=== PATIENT | female | born 1985 | race Hispanic/Latino ===

== ENCOUNTER 2017-10-13 22:42 | Inpatient (IN) | payer MEDICARE, MEDICAID ==
[~2017-10-13] VITALS: Ht 160 cm; Wt 56.7 kg
[2017-10-13] MEDS ORDERED: DEPAKOTE125 MG PO (22:58)
[2017-10-13] MEDS ORDERED: FIORICET1 EA ORAL (22:58)
--- NOTE | 2017-10-13 23:18 | Emergency Room Report ---
History of Present Illness General Chief Complaint: Dizziness Source: Patient Present Illness HPI Is a 32-year-old female with a history migraine and seizure. She presents with chief complaint of dizziness, slurred speech, numbness to her lower extremity. His been ongoing for couple weeks now. Denies any fever chills denies any nausea vomiting. Has headache. She said that she felt like her face is swollen and she can call for a while. She said that she has to text everything. Worse with exertion. She claimed that she had blood work done and it showed as she is very anemic. She dropped from hemoglobin 12.7 to 8.2. This is in the last 2 months. Allergies: Coded Allergies: No Known Allergies (Unverified , 10/13/17) Patient History Past Medical History: see triage record, seizures, migraines Past Surgical History: none Pertinent Family History: none Social History: Denies: smoking Last Menstrual Period: 2 WEEKS AGO Now: No Immunizations: other Reviewed Nursing Documentation: PMH: Agreed, PSxH: Agreed Nursing Documentation-PMH Hx Seizures: Yes Review of Systems Constitutional: Reports: weakness Eye: Denies: eye pain, blurred vision ENT: Denies: ear pain, nose congestion, throat swelling Respiratory: Denies: cough, shortness of breath Cardiovascular: Denies: chest pain, palpitations Gastrointestinal: Denies: abdominal pain, diarrhea, nausea, vomiting Musculoskeletal: Denies: back pain, joint pain Skin: Denies: rash Neurological: Reports: headache, numbness Endocrine: Denies: increased thirst, increased urine Hematologic/Lymphatic: Denies: easy bruising All Other Systems: negative except mentioned in HPI Physical Exam Vital Signs Date Time Temp Pulse Resp B/P (MAP) Pulse Ox O2 Delivery O2 Flow Rate FiO2 10/13/17 22:47 99.3 98 16 125/83 100 Room Air vitals normal Sp02 EP Interpretation: reviewed, normal General Appearance: well appearing, no apparent distress, alert Head: normocephalic, atraumatic Eyes: bilateral eye PERRL, bilateral eye EOMI ENT: hearing grossly normal, normal pharynx Neck: full range of motion, supple, no meningismus Respiratory: chest non-tender, lungs clear, normal breath sounds Cardiovascular #1: regular rate, rhythm, no murmur Gastrointestinal: normal bowel sounds, non tender, no mass, no organomegaly, no bruit, non-distended Musculoskeletal: back normal, normal range of motion Neurologic: alert, oriented x3 Psychiatric: depressed affect Skin: warm/dry Medical Decision Making Diagnostic Impression: Primary Impression: Paresthesia Additional Impressions: Weakness of right hand Frequent falls Anemia Qualified Codes: D64.9 - Anemia, unspecified UTI (urinary tract infection) Qualified Codes: N30.00 - Acute cystitis without hematuria ER Course Patient presents with dizziness, blurred vision, paresthesias a neuropathy in her left lower extremity and weakness in the right upper extremity. She been diagnosed with TIA in the past. This does not appear to be in TIA/CVA symptoms. Ongoing for 2 weeks and getting worse. She has frequent falls. Her neurologist Dr. Augustine Krueger, ([phone]) said that she may have early MS. I gave her a dose of steroids here. She said she been on steroids in the past and it caused severe headache pain joint pain after a month. She also says she been on multiple different kind of medication. Because of her frequent falls will admit for further workup and neurology consult. Lab Results Impression labs with anemia Rhythm Strip Diag. Results Rhythm Strip Time: 03:20 EP Interpretation: yes Rate: 70 Rhythm: NSR, no PVC's, no ectopy CT/MRI/US Diagnostic Results CT/MRI/US Diagnostic Results : Imaging Test Ordered: CT head Impression negative per radiologist Last Vital Signs Date Time Temp Pulse Resp B/P (MAP) Pulse Ox O2 Delivery O2 Flow Rate FiO2 10/13/17 22:47 99.3 98 16 125/83 100 Room Air Status: improved Disposition: ADMITTED INPATIENT Condition: Serious ELEANOR SAUER M.D. Oct 13, 2017 23:18
[2017-10-13 23:34] LABS: APPEARANCE,URINE SLIGHTLY CLOUDY; KETONES,URINE NEGATIVE (NEGATIVE); LEUKOCYTE ESTERASE ,URINE NEGATIVE (NEGATIVE); NITRITE,URINE POSITIVE (NEGATIVE); PH,URINE 7 (4.5-8.0); PROTEIN,URINE NEGATIVE (NEGATIVE); UROBILINOGEN,URINE NORMAL MG/DL (0.0-1.0)
[2017-10-13 23:47] LABS: BASOPHILS % (AUTO) 2.2 % (0.0-2.0); EOSINOPHILS % (AUTO) 0.6 % (0.0-3.0); MEAN CORPUSCULAR HEMOGLOBIN 19.8 PG (27.0-31.0); MEAN CORPUSCULAR HGB CONC 29.7 G/DL (32.0-36.0); MEAN CORPUSCULAR VOLUME 67 FL (80-99); MEAN PLATELET VOLUME 6.2 FL (6.5-10.1); MONOCYTES % (AUTO) 10.2 % (1.0-10.0); NEUTROPHILS % (AUTO) 52.1 % (45.0-75.0); PLATELET COUNT 265 K/UL (150-450); RED BLOOD COUNT 4.39 M/UL (4.20-5.40); RED CELL DISTRIBUTION WIDTH 13.8 % (11.6-14.8); WHITE BLOOD COUNT 4.1 K/UL (4.8-10.8)
[2017-10-13 23:49] LABS: BACTERIA,URINE MANY /HPF; RBC,URINE 0-2 /HPF (0 - 2); SQUAMOUS EPITHELIAL CELL,UR OCCASIONAL /LPF (NONE/OCC); WBC,URINE 0-2 /HPF (0 - 2)
[2017-10-13 23:59] LABS: ANION GAP 10 mmol/L (5-15); CALCIUM 8.6 MG/DL (8.5-10.1); CARBON DIOXIDE 23 MMOL/L (21-32); CHLORIDE 106 MMOL/L (98-107); CREATININE 0.8 MG/DL (0.55-1.30); GLOMERULAR FILTRATION RATE > 60 mL/min (>60); POTASSIUM 3.5 MMOL/L (3.5-5.1); SODIUM 139 MMOL/L (136-145)
[2017-10-14] VITALS (8 sets, daily range): BP systolic 105–134; BP diastolic 57–80
[2017-10-14 00:04] LABS: VALPROIC ACID < 3 MCG/ML (50-100)
[2017-10-14] MEDS ORDERED: HYDROmorphone 1mg/ml Carpuject IVP ONE ×2 (00:15→01:45)
[2017-10-14] MEDS ORDERED: cefTRIAXone 1 GM in NS 55 ML IVPB ONE (00:15)
[2017-10-14] MEDS ORDERED: Solu-MEDROL 125mg Inj IVP ONE (00:15)
[2017-10-14] MEDS ORDERED: Depakote 500mg tab ORAL ONE (00:45)
[2017-10-14] MEDS: Ketorolac 30mg Inj IV ONE ×2 (01:00→01:28)
[2017-10-14] MEDS ORDERED: WELLBUTRIN XL150 MG ORAL (03:24)
[2017-10-14] MEDS ORDERED: AMBIEN10 MG ORAL (03:24)
[2017-10-14] MEDS ORDERED: ATIVAN1 MG ORAL (03:24)
[2017-10-14] MEDS ORDERED: LORazepam 1mg tab ORAL PRN (05:45)
[2017-10-14] MEDS: HYDROmorphone 1mg/ml Carpuject IVP PRN ×2 (06:35→10:37)
[2017-10-14] MEDS: BuPROPion XL 150mg tab ORAL SCH (08:29)
[2017-10-14] MEDS: Heparin 5000 units/ml inj SUBQ SCH ×2 (08:31→21:06)
[2017-10-14 10:20] LABS: IRON 19 ug/dL (50-175); TOTAL IRON BINDING CAPACITY 425 ug/dL (250-450)
--- NOTE | 2017-10-14 10:20 | Diagnostic Imaging Report ---
Indication: Altered mental status Technique: Continuous helical CT scanning of the head was performed utilizing automated exposure control without intravenous contrast material. Axial and coronal reconstructions were obtained. Comparison: None CT dose: Total DLP 1397 mGycm; CTDI vol 70.4 mGy Findings: There is no acute intracranial hemorrhage, mass effect or cortical edema. The ventricles, cisterns and sulci are within normal limits. The posterior fossa and fourth ventricle are unremarkable. Sellar and suprasellar regions are grossly unremarkable. Visualized mastoid air cells and paranasal sinuses are unremarkable. No focal lesions of the bony calvarium or soft tissues of the scalp are seen. Impression: No evidence of acute intracranial hemorrhage, mass effect or cortical edema. MRI may be obtained for more sensitive evaluation as clinically indicated. The CT scanner at [facility] is accredited by the [employer] and the scans are performed using protocols designed to limit radiation exposure to as low as reasonably achievable to attain images of sufficient resolution adequate for diagnostic evaluation.
[2017-10-14] MEDS: DiphenhydrAMINE 50mg/ml Inj IVP PRN ×3 (12:03→21:48)
[2017-10-14] MEDS ORDERED: Hydromorphone 0.5mg/0.5ml inj IVP PRN (13:00)
--- NOTE | 2017-10-14 14:22 | Consultation ---
Consult Note Consult Note [facility] NEUROLOGY CONSULTATION 10/14/2017 DIP LUBE OPERATOR: Ivory Paz M.D. REFERRING PHYSICIAN: Reid St M.D. HISTORY: Ms. Alissa Love is a 32-year-old, right-handed, lady who has a history of migraine headaches and seizures since she was age 14. Her migraine headaches at first were quite infrequent, but over the last 7-8 years, she has been having them almost every day. She takes Fioricet for these headaches and sometimes has to take multiple Fioricets every day. By history, her seizures consist of generalized abnormal body jerking associated with loss of consciousness. The frequency of these seizures has varied over the years, but now she has them approximately twice a month. She is unable to tell me what medicine she takes for her seizures. In 2012, she was diagnosed with an aneurysm, most probably somewhere in the posterior circulation from what she tells me. She was evaluated for that at [facility] and a coil was placed in the aneurysm. Since November of 2014. She has been quite ill. She has had multiple episodes where she has problems talking. She has slurring of speech, problems expressing herself, significant confusion and disorientation, slowing of her thoughts, and inability to walk because of generalized weakness. These episodes can last for 5 to 6 hours and at times an entire day. For the last week she has noticed that her entire left leg below the knee is numb. In addition the right upper extremity feels weak. She was told her neurologist that she could have MS. PAST MEDICAL HISTORY: Migraines since age 14. Seizure disorder since age 14. 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 Since November of 2014, multiple episodes of slurring of speech, cognitive dysfunction, and generalized weakness related to prescription drug intoxication. FAMILY HISTORY: Nothing significant. PERSONAL HISTORY: Home: She lives with her and 2 children. 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 Habits: She used to smoke electronic cigarettes but has stopped doing that for quite some time now. She used to have a rare alcoholic drink but is not drinking right now. There is no history of any illicit drug use. MEDICATIONS: Unknown. PHYSICAL EXAMINATION: GENERAL EXAMINATION: She is a well-developed, relatively well-nourished lady lying in bed in no acute distress. VITAL SIGNS: BP 112/73 Pulse 67 Temp 98.2 F Resp 18 HEAD: Normocephalic and atraumatic. NECK: No neck rigidity was observed. EENT: Examination benign. NEUROLOGICAL EXAMINATION: MENTAL STATUS EXAMINATION: She was alert and awake. She was oriented to [facility], [facility], and September 2017. She did not know the exact date. She was able to recall 3/3 words immediately after 1 minute and after 3 minutes on the second trial. She was able to remember Presidents Trump and Obama only. Her mathematical skills were impaired. Her visuospatial function was also impaired. SPEECH: She had mild but unusual dysarthria. LANGUAGE: She was able to comprehend, repeat and express herself relatively well, but hesitated when she spoke. CRANIAL NERVE EXAMINATION: II: The visual albrecht were intact on confrontation testing. III, IV, and : External ocular movements were full and the pupils 3 mm in diameter, equal, round,regular, and reactive to light. V: She had normal facial sensations, and the temporales, masseters, and pterygoids functioned normally. VII: She had normal facial expressions and no facial asymmetry. VIII: She was able to hear well bilaterally and had no nystagmus. IX: The palate moved symmetrically on phonation. X: She had no hoarseness of voice. XI: The sternocleidomastoids and trapezii functioned normally. XII: The tongue was in the midline without any fasciculations or atrophy. MOTOR SYSTEM: The tone was normal in all 4 extremities. Examination of muscle mass revealed no focal wasting. Examination of power revealed G 5/5 power in all muscle groups but she exhibited give way weakness in the right upper and left lower extremities. SENSORY EXAMINATION: She had intact sensations to pinprick, light touch, and graphesthesia. COORDINATION: She performed relatively well on [id number]-vd-[id number] testing, however the movements were significantly slowed. Niyf-bz-qyvm testing could not be performed. REFLEXES: 1+ and bilaterally symmetrical at the biceps, triceps, brachioradialis , and knees. Trace+ at both ankles. The plantar responses were flexor bilaterally. STANCE: She refused to try. GAIT: She refused to try. DIAGNOSTIC IMPRESSION: 1. Ms. Alissa Love is a 32-year-old, right-handed, lady who does have a past history of seizures and migraines since age 14, who also had an aneurysm that had to be coiled in 2012. The exact location of this aneurysm is unknown to her. She since November 2014 has had a progressive decline in cognitive and motor function with multiple episodes of slurring of speech, generalized weakness with inability to walk, and slowing of her thought processes associated with speech and language problems. It was felt that this problem was due to drug intoxication and improved when all mind altering drugs were stopped. 2. These problems have returned and in addition for the last week she has noticed that her entire left leg below the knee is numb. In addition the right upper extremity feels weak. She was told her neurologist that she could have MS. 3. On neurological examination, at this time, she does demonstrate a significant dysarthria, generalized cognitive dysfunction, give way weakness in the right upper and left lower extremities, but no definite focal or lateralizing findings on her neurological examination. 4. Her episodes of slurring of speech, problems expressing herself, slowing of her thought processes and generalized weakness are most probably due to barbiturate intoxication as confirmed on her urine toxicology screen. 5. It is unclear as to why her entire left leg below the knee is numb, and the right upper extremity weak. RECOMMENDATIONS: 1. Agree with management thus far. 2. Try to find out what medicines she was taking at home. 3. Will review MRI of brain when done. 4. EEG to evaluate degree and type of encephalopathy. 5. Observe closely. Thank you for entrusting me with the care of Ms. Love. I shall follow her with you. Ivory Paz M.D., M.S.P.H. Neurologist & Clinical Neurophysiologist IVORY PAZ Oct 14, 2017 14:22
[2017-10-14] MEDS: Hydromorphone 0.5mg/0.5ml inj IVP PRN ×2 (16:05→21:14)
[2017-10-14] MEDS: LORazepam 1mg tab ORAL PRN (17:29)
--- NOTE | 2017-10-14 20:30 | History and Physical Report ---
DATE OF ADMISSION: 10/14/2017 CHIEF COMPLAINT: Possible MS exacerbation. HISTORY OF PRESENT ILLNESS: The patient is a 32-year-old female. She has a history of MS for the last year, migraine headaches, and seizure disorder. She presented with complaints of generalized weakness. According to the patient, she was well until several days prior to admission when she developed worsening weakness in the left lower extremity and right upper extremity. She has been unable to use the right hand. She has been unable to pickle pumper a cup or eat. She has had unsteadiness and gait instability and some falls. She has also had worsening burning pain in the arms and legs. She presented to the emergency room where initial laboratories and vital signs were unremarkable. She was noted to be anemic with a hemoglobin of 8.7. She does state that she has had some blood in her stool. She denies any abdominal pain. No nausea. No vomiting. PAST MEDICAL HISTORY: As above. PAST SURGICAL HISTORY: Includes an appendectomy and a tubal ligation. CURRENT MEDICATIONS: Reconciled and reviewed. ALLERGIES: None. SOCIAL HISTORY: Negative for tobacco, ethanol. The patient did try marijuana few days ago to see if that would help with her weakness but according to the patient it only made her sicker. FAMILY HISTORY: None. REVIEW OF SYSTEMS: GENERAL: No fever or chills. HEENT: No headaches or visual changes. CARDIOPULMONARY: No chest pain or shortness of breath. GASTROINTESTINAL: No nausea or vomiting. GENITOURINARY: No urgency or frequency. MUSCULOSKELETAL: No joint pain or swelling. NEUROLOGIC: Positive history of seizures. PHYSICAL EXAMINATION: VITAL SIGNS: Temperature 98.3, pulse 68, respirations 18, and blood pressure 113/69. GENERAL: The patient is a well-developed female, in no apparent distress. She is awake, alert, but seems somewhat somnolent, but is able answer to questions. Pupils are equal, round, and light. There is a questionable left-sided facial droop. NECK: Supple. There is no lymphadenopathy. HEART: Regular rate and rhythm. LUNGS: Lungs are clear. ABDOMEN: Soft, nontender, and nondistended. EXTREMITIES: Without clubbing, cyanosis, or edema. The patient has generalized weakness in the left upper extremity and right lower extremity. She is numb in the the hands and the feet. LABORATORY DATA: White count was 4, hemoglobin 8.7, hematocrit 29, and platelets of 265. Sodium 139, potassium 3.5, chloride 106, bicarb 23, BUN 9, and creatinine is 0.8. UA was clear. ASSESSMENT: This is an unfortunate female admitted with complaints of generalized weakness, suspect secondary to multiple sclerosis exacerbation. 1. Possible multiple sclerosis exacerbation 2. Anemia. 3. History of migraines. 4. Chronic pain. PLAN: 1. MRI of the brain with contrast. 2. Neurology consultation. 3. Anemia workup. 4. IV pain medications and IV hydration will also be ordered. 5. PT/OT evaluation will also be obtained. Reid St M.D. DR: Rao JOB#: [id number] CC:
[2017-10-14] MEDS: Iron Sucrose 100 MG in NS 55 ML IVPB SCH (20:58)
[2017-10-14] MEDS: Zolpidem 5mg tab ORAL PRN (22:58)
[2017-10-15] VITALS: BP 102/65
[2017-10-15] MEDS: Hydromorphone 0.5mg/0.5ml inj IVP PRN ×6 (01:37→22:52)
[2017-10-15 04:00] VITALS: BP 100/63
--- NOTE | 2017-10-15 07:13 | General Progress Note ---
Assessment/Plan Problem List: (1) Seizure ICD Codes: R56.9 - Unspecified convulsions SNOMED: 08739938 (2) Multiple sclerosis ICD Codes: G35 - Multiple sclerosis SNOMED: 46459202 (3) Dizziness ICD Codes: R42 - Dizziness and giddiness SNOMED: 875895471, 899843690 (4) Weak ICD Codes: R53.1 - Weakness SNOMED: 01867773 (5) Weakness of right hand ICD Codes: R29.898 - Other symptoms and signs involving the musculoskeletal system SNOMED: 708358583 (6) Frequent falls ICD Codes: R29.6 - Repeated falls SNOMED: 813041482 (7) Paresthesia ICD Codes: R20.2 - Paresthesia of skin SNOMED: 17183639 Status: stable, progressing Assessment/Plan cont current rx ivf pain rx eeg await mri pt/ot Subjective ROS Limited/Unobtainable: No Constitutional: Reports: malaise, weakness HEENT: Reports: no symptoms Cardiovascular: Reports: no symptoms Respiratory: Reports: no symptoms Gastrointestinal/Abdominal: Reports: no symptoms Genitourinary: Reports: no symptoms Neurologic/Psychiatric: Reports: pre-existing deficit Endocrine: Reports: no symptoms Hematologic/Lymphatic: Reports: no symptoms Allergies: Coded Allergies: No Known Allergies (Unverified , 10/13/17) All Systems: reviewed and negative except above Subjective no new complaints. pain controlled. no fever or chills. no headaches. neuro appreciated. Objective Last 24 Hour Vital Signs Date Time Temp Pulse Resp B/P (MAP) Pulse Ox O2 Delivery O2 Flow Rate FiO2 10/15/17 04:00 98.7 18 100/63 99 Room Air 10/15/17 00:00 99.2 77 20 102/65 100 Room Air 10/14/17 20:00 99.6 67 20 107/68 100 Room Air 10/14/17 15:53 98.2 10/14/17 15:41 98.2 77 20 105/57 100 Room Air 10/14/17 12:00 97.8 69 18 134/79 99 Room Air 10/14/17 10:03 97.8 10/14/17 08:00 98.2 67 18 112/73 99 Room Air Laboratory Tests 10/14/17 09:44: Iron Level 19L, Total Iron Binding Capacity 425, Percent Iron Saturation 4L, Unsaturated Iron Binding 406H 10/15/17 04:30: Thyroid Stimulating Hormone (TSH) [Pending] Height (Feet): 5 Height (Inches): 3.00 Weight (Pounds): 125 General Appearance: WD/WN, alert Neck: supple Cardiovascular: normal peripheral pulses, normal rate, regular rhythm Respiratory/Chest: chest wall non-tender, lungs clear, normal breath sounds Abdomen: normal bowel sounds, non tender, soft, no organomegaly Edema: no edema noted Arm (L), no edema noted Arm (R), no edema noted Leg (L), no edema noted Leg (R), no edema noted Pedal (L), no edema noted Pedal (R), no edema noted Generalized Neurologic: motor weakness, sensory deficit TOMY RODAS Oct 15, 2017 07:13
[2017-10-15 08:00] VITALS: BP 100/61
[2017-10-15] MEDS: BuPROPion XL 150mg tab ORAL SCH (08:07)
[2017-10-15] MEDS: Heparin 5000 units/ml inj SUBQ SCH ×2 (08:11→21:48)
[2017-10-15] MEDS: DiphenhydrAMINE 50mg/ml Inj IVP PRN ×4 (09:56→22:51)
--- NOTE | 2017-10-15 12:48 | Neurology Progress Note ---
Interim History Interim History Interim History Ms. Love feels a little better today. She feels a little stronger. The headache is better. She denies any new neurologic symptoms. She continues to seem to be intoxicated. Review of Systems Neuro Review of Systems Benign. Objective Physical Exam Last Vital Signs Date Time Temp Pulse Resp B/P (MAP) Pulse Ox O2 Delivery O2 Flow Rate FiO2 10/15/17 10:27 98.7 10/15/17 08:00 98 Room Air 10/15/17 08:00 68 18 100/61 Laboratory Tests Test 10/15/17 04:30 Thyroid Stimulating Hormone (TSH) 1.390 uiU/mL (0.358-3.740) Neurologic Exam Objective PHYSICAL EXAMINATION: GENERAL EXAMINATION: She is a well-developed, relatively well-nourished lady lying in bed in no acute distress. HEAD: Normocephalic and atraumatic. NECK: No neck rigidity was observed. EENT: Examination benign. NEUROLOGICAL EXAMINATION: MENTAL STATUS EXAMINATION: She was alert and awake. She was oriented to [facility], [facility], and September 2017. She did not know the exact date. She was able to recall 3/3 words immediately after 1 minute and after 3 minutes on the second trial. She was able to remember Presidents Trump and Obama only. Her mathematical skills were impaired. Her visuospatial function was also impaired. SPEECH: She had mild but unusual dysarthria. LANGUAGE: She was able to comprehend, repeat and express herself relatively well , but hesitated when she spoke. CRANIAL NERVE EXAMINATION: II: The visual albrecht were intact on confrontation testing. III, IV, and : External ocular movements were full and the pupils 3 mm in diameter, equal, round,regular, and reactive to light. V: She had normal facial sensations, and the temporales, masseters, and pterygoids functioned normally. VII: She had normal facial expressions and no facial asymmetry. VIII: She was able to hear well bilaterally and had no nystagmus. IX: The palate moved symmetrically on phonation. X: She had no hoarseness of voice. XI: The sternocleidomastoids and trapezii functioned normally. XII: The tongue was in the midline without any fasciculations or atrophy. MOTOR SYSTEM: The tone was normal in all 4 extremities. Examination of muscle mass revealed no focal wasting. Examination of power revealed G 5/5 power in all muscle groups but she exhibited less give way weakness in the right upper and left lower extremities. SENSORY EXAMINATION: She had intact sensations to pinprick, light touch, and graphesthesia. COORDINATION: She performed relatively well on gotban-rw-zzbz and vhic-ug-zhlg testing. REFLEXES: 1+ and bilaterally symmetrical at the biceps, triceps, brachioradialis , and knees. Trace+ at both ankles. The plantar responses were flexor bilaterally. STANCE: She stood up with contact guard. GAIT: She walked well with contact guard with an awkward gait. Impression/Recommendations Diagnostic Impression 1. Ms. Alissa Love is a 32-year-old, right-handed, lady who does have a past history of seizures and migraines since age 14, who also had an aneurysm that had to be coiled in 2012. The exact location of this aneurysm is unknown to her. She since November 2014 has had a progressive decline in cognitive and motor function with multiple episodes of slurring of speech, generalized weakness with inability to walk, and slowing of her thought processes associated with speech and language problems. It was felt that this problem was due to drug intoxication and improved when all mind altering drugs were stopped. 2. These problems have returned and in addition for the last week she has noticed that her entire left leg below the knee is numb. In addition the right upper extremity feels weak. She was told her neurologist that she could have MS. 3. She feels better today but is still not back to her normal self. 4. On neurological examination, at this time, she does demonstrate a significant dysarthria, generalized cognitive dysfunction, give way weakness in the right upper and left lower extremities, but no definite focal or lateralizing findings on her neurological examination. 5. Her episodes of slurring of speech, problems expressing herself, slowing of her thought processes and generalized weakness are most probably due to barbiturate intoxication as confirmed on her urine toxicology screen. 6. It is unclear as to why her entire left leg below the knee is numb, and the right upper extremity weak. Recommendations 1. Continue present management. 2. Will review MRI of brain when done. 3. Await EEG to evaluate degree and type of encephalopathy. 4. Try to keep off all mind-altering drugs. 5. Observe closely. Nain Almanza M.D., M.S.P.H. Neurologist & Clinical Neurophysiologist NAIN ALMANZA Oct 15, 2017 12:48
[2017-10-15] MEDS ORDERED: Tubing IV Secondary IV ONE (14:51)
[2017-10-15] MEDS ORDERED: NS 500ML ONE (14:51)
[2017-10-15 16:00] VITALS: BP 93/59
--- NOTE | 2017-10-15 16:33 | Diagnostic Imaging Report ---
Indication: Migraines, left leg and right arm weakness Technique: sagittal T1 fast spin echo, axial T1 and axial and sagittal T2 FLAIR PROPELLER, axial T2 FS PROPELLER, T2* GRE, axial diffusion weighted images, post contrast axial and coronal T1 FLAIR PROPELLER images. ADC and exponential ADC maps generated Comparison: Brain CT 10/13/2017 Findings: . No abnormal areas of restricted diffusion to suggest acute infarction. No acute hemorrhage or edema. No mass effect nor midline shift. No abnormal contrast enhancement. Normal size ventricles and extra axial CSF spaces. Visualized orbits and sinuses are unremarkable. The vascular flow voids are preserved. There is incidental finding of a patent cavum septum pellucidum. No abnormal white matter changes are evident. Unusual band of signal is seen in the inferior optic globes bilaterally, suspect artifactual Impression: Negative. No evidence of acute intracranial hemorrhage, edema, mass effect, or infarct.
[2017-10-15 17:34] VITALS: BP 95/62
[2017-10-15 20:00] VITALS: BP 94/58
[2017-10-15] MEDS: Iron Sucrose 100 MG in NS 55 ML IVPB SCH (21:43)
[2017-10-15] MEDS: Zolpidem 5mg tab ORAL PRN (23:56)
[2017-10-16] VITALS: BP 88/60
[2017-10-16 03:47] VITALS: BP 81/43
[2017-10-16 04:09] VITALS: BP 92/61
[2017-10-16 05:20] VITALS: BP 99/70
[2017-10-16] MEDS: Hydromorphone 0.5mg/0.5ml inj IVP PRN ×2 (05:26→09:35)
[2017-10-16] MEDS: DiphenhydrAMINE 50mg/ml Inj IVP PRN ×2 (05:26→10:22)
[2017-10-16 08:00] VITALS: BP 99/52
[2017-10-16] MEDS: BuPROPion XL 150mg tab ORAL SCH (08:33)
[2017-10-16] MEDS: Heparin 5000 units/ml inj SUBQ SCH (08:38)
[2017-10-16 12:00] VITALS: BP 104/64
[2017-10-16] MEDS: LORazepam 1mg tab ORAL PRN (12:43)
[2017-10-16] MEDS ORDERED: NS 500ML ONE (12:59)
--- NOTE | 2017-10-16 17:15 | Discharge Summary ---
DATE OF ADMISSION: 10/14/2017 DATE OF DISCHARGE: 10/16/2017 ADMISSION DIAGNOSES: 1. Multiple sclerosis exacerbation. 2. Intractable pain. 3. History of seizure disorder. DISCHARGE DIAGNOSES: 1. Multiple sclerosis exacerbation. 2. Intractable pain. 3. History of seizure disorder. HOSPITAL COURSE: The patient is a pleasant female, who presented with complaints of multiple neurologic complaints including weakness and numbness. She gave a history of a diagnosis of MS. She was admitted. Neuro consultation was obtained. She required IV pain medication for pain control. She had a MRI with contrast that showed no evidence of any MS. She was seen by Neurology, who felt most of her pain was related to severe migraine. The patient on discharge was pain free and her weakness has improved. She will be discharged with home health or outpatient physical therapy. She has been instructed to follow up with her PMD. DISCHARGE MEDICATIONS: Please see discharge medication list for discharge medications. DIET: Regular diet. ACTIVITIES: Ad-evelyn. Reid St M.D. DR: ANDREA JOB#: [id number] CC:
--- NOTE | 2017-10-25 16:15 | Electroencephalogram ---
DATE OF PROCEDURE: 10/15/2017 EEG REPORT REQUESTING PHYSICIAN: Reid St M.D. HISTORY: This EEG was performed on a 32-year-old lady with a history of multiple medical problems, who was hospitalized for an altered mental state, increasing slurring of speech, cognitive dysfunction and questionable seizures. The purpose of this EEG was to evaluate the patient for the degree and type of cerebral dysfunction and to exclude ongoing interictal or ictal phenomena. TECHNICAL NOTE: This EEG was performed on a [employer] acquisition unit with electrodes placed on the scalp according to the International 10-20 system. Ftdaz-pu-dhkda and wzpos-na-npi montages were used. The EEG was technically satisfactory and was performed in the awake and drowsy states. OBSERVATIONS: In the best awake state, the background activity consisted of 8-9 Hz alpha activity with intermixed theta frequencies. Drowsiness was characterized by slowing of the background in the 4-5 Hz theta range. No focal abnormalities or epileptiform discharges were seen. IMPRESSION: This is an abnormal electroencephalogram characterized by an unusually large amount of intermixed theta activity seen during the reportedly awake state. COMMENT: This study is consistent with an encephalopathy of a mild degree. Please note that no interictal discharges were seen on this EEG. Nain Almanza M.D., M.S.P.H. DR: MYRNA JOB#: [id number] MTDChristina
== END 2017-10-16 13:00 | disposition home health service (06) | DRG 60 ==
LOC: EMR 23:30 → EDBEDREQ 10-14 01:28 → MERGE 10-14 01:35 → 4E 10-14 01:35 → EDBEDREQ 10-14 02:15 → 4E 10-14 20:16
DX: G35 Multiple sclerosis (principal); D64.9 Anemia, unspecified; G89.29 Other chronic pain; R29.6 Repeated falls; R20.2 Paresthesia of skin; G40.909 Epilepsy, unspecified, not intractable, without status epilepticus; I72.9 Aneurysm of unspecified site; Z98.51 Tubal ligation status; Z86.73 Personal history of transient ischemic attack (TIA), and cerebral infarction without residual deficits
CPT/HCPCS: 36415; 70450; 70553; 80048; 80164; 80307; 81003; 81025; 83540; 83550; 84443; 85025; 87086; 87181; 95819; 99285; A9585; J2405

== ENCOUNTER 2018-06-11 17:05 | Emergency (ER) | payer MEDICARE, MEDICAID ==
[~2018-06-11] VITALS: Ht 160 cm; Wt 53.1 kg
[~2018-06-11 17:05] MED LIST: AMBIEN10 MG ORAL; ATIVAN1 MG ORAL; DEPAKOTE125 MG PO; FIORICET1 EA ORAL; WELLBUTRIN XL150 MG ORAL
[2018-06-11 17:29] VITALS: BP 105/75
[2018-06-11] MEDS ORDERED: levETIRAcetam 500 MG in D5W 110 ML IV ONE (17:30)
[2018-06-11] MEDS ORDERED: Ketorolac 30mg Inj IV ONE (18:15)
[2018-06-11] MEDS ORDERED: Isovue-300 100ml vial INJ PRN (18:15)
[2018-06-11 18:21] LABS: ANION GAP 18 mmol/L (5-15); BLOOD UREA NITROGEN 12 mg/dL (7-18); CALCIUM 8.6 MG/DL (8.5-10.1); CARBON DIOXIDE 19 MMOL/L (21-32); CHLORIDE 98 MMOL/L (98-107); CREATININE 1.4 MG/DL (0.55-1.30); SODIUM 135 MMOL/L (136-145)
[2018-06-11 18:25] LABS: ALANINE AMINOTRANSFERASE 24 U/L (12-78); ALBUMIN 3.3 G/DL (3.4-5.0); ALBUMIN/GLOBULIN RATIO 0.6 (1.0-2.7); ALKALINE PHOSPHATASE 103 U/L (46-116); ASPARTATE AMINO TRANSFERASE 28 U/L (15-37); BILIRUBIN,TOTAL 0.4 MG/DL (0.2-1.0); CREATINE KINASE 39 U/L (26-308)
[2018-06-11 18:27] LABS: HEMATOCRIT 33.3 % (37.0-47.0); HEMOGLOBIN 10.6 G/DL (12.0-16.0); MEAN CORPUSCULAR VOLUME 69 FL (80-99); PLATELET COUNT 187 K/UL (150-450); WHITE BLOOD COUNT 13.9 K/UL (4.8-10.8)
[2018-06-11 18:52] VITALS: BP 105/81
[2018-06-11] MEDS ORDERED: Norco 5mg/325mg tab ORAL ONE (19:00)
[2018-06-11 19:50] VITALS: BP 103/81
[2018-06-11 20:30] VITALS: BP 105/81
--- NOTE | 2018-06-11 20:53 | Emergency Room Report ---
History of Present Illness General Chief Complaint: Seizure Source: Patient Present Illness HPI This patient is accompanied by her boyfriend. She has multiple complaints. Apparently she had a seizure prior to arrival. She has a history of seizure disorder and takes Keppra. She also complains of fever and pain in both her flank area. She also has pain in her back. Per triage she had nausea and vomiting. However she did not endorses to me. She also states that she has tingling in her left arm. She has pain in her right hand. She denies chest pain or shortness of breath. Allergies: Coded Allergies: No Known Allergies (Unverified , 07/04/12) Patient History Past Medical History: see triage record, seizures Social History: Denies: smoking, alcohol use, drug use Last Menstrual Period: 05/22/18 Reviewed Nursing Documentation: PMH: Agreed; PSxH: Agreed Nursing Documentation-PMH Hx Seizures: Yes Review of Systems All Other Systems: negative except mentioned in HPI Physical Exam Vital Signs Date Time Temp Pulse Resp B/P (MAP) Pulse Ox O2 Delivery O2 Flow Rate FiO2 06/11/18 17:10 98.0 125 18 119/76 98 Room Air 98.1 Sp02 EP Interpretation: reviewed, normal General Appearance: no apparent distress, alert, GCS 15, non-toxic Head: normocephalic, atraumatic Eyes: bilateral eye normal inspection, bilateral eye PERRL ENT: hearing grossly normal, normal pharynx, no angioedema, normal voice Neck: full range of motion, supple/symm/no masses Respiratory: chest non-tender, lungs clear, normal breath sounds, no respiratory distress, no retraction, no accessory muscle use, speaking full sentences Cardiovascular #1: no edema, tachycardia Gastrointestinal: normal bowel sounds, soft, non-distended, no guarding, no rebound, tenderness - TTP on bilateral lateral lower rib cage. This reproduces the patients pain. Rectal: deferred Musculoskeletal: back normal, gait/station normal, normal range of motion, other - TTP along the bilateral paraspinal m. of the lumbar spine. Neurologic: alert, oriented x3, responsive, motor strength/tone normal, sensory intact, speech normal Psychiatric: judgement/insight normal, memory normal, mood/affect normal, no suicidal/homicidal ideation Skin: normal color, no rash, warm/dry, well hydrated Medical Decision Making Diagnostic Impression: Primary Impression: Seizure disorder Additional Impressions: Tachycardia Flank pain Hypokalemia ER Course This patient had narcotic seeking behavior. The patient refused all nonnarcotics even as a first attempt at controlling the patient's pain. I offered acetaminophen Phenergan and Toradol. The patient did take the [place] that I gave her. Basic laboratory workup to include a CBC, CMP did show a slight leukocytosis. Patient was also quite tachycardic during her ED course. I was concerned about pyelonephritis given the back and flank pain. I also wanted to obtain a CT of the patient's head. She did report a history of MS. Unfortunately, this patient refused to give a urinalysis. She also refused undergo a CT of her head or of her abdomen and pelvis. I really could not completely this patient's workup. She did have tachycardia. I did pull the [facility] report on this patient and she receives large quantities of oxycodone from her primary care physician and other controlled substances to include benzodiazepines. I had planned on fully working this patient up for an infection and for her tachycardia. However, the patient declined these tests. The patient then decided to leave AGAINST MEDICAL ADVICE. I cautioned the patient and her boyfriend that she should stay and undergo further workup for the tests that I had ordered. However, I suspect this patient is displeased with the lack of narcotic pain medication that she received. The patient left AGAINST MEDICAL ADVICE. Laboratory Tests Test 06/11/18 17:45 White Blood Count 13.9 K/UL (4.8-10.8) H Red Blood Count 4.80 M/UL (4.20-5.40) Hemoglobin 10.6 G/DL (12.0-16.0) L Hematocrit 33.3 % (37.0-47.0) L Mean Corpuscular Volume 69 FL (80-99) L Mean Corpuscular Hemoglobin 22.0 PG (27.0-31.0) L Mean Corpuscular Hemoglobin Concent 31.7 G/DL (32.0-36.0) L Red Cell Distribution Width 14.0 % (11.6-14.8) Platelet Count 187 K/UL (150-450) Mean Platelet Volume 6.6 FL (6.5-10.1) Neutrophils (%) (Auto) % (45.0-75.0) Lymphocytes (%) (Auto) % (20.0-45.0) Monocytes (%) (Auto) % (1.0-10.0) Eosinophils (%) (Auto) % (0.0-3.0) Basophils (%) (Auto) % (0.0-2.0) Differential Total Cells Counted 100 Neutrophils % (Manual) 71 % (45-75) Lymphocytes % (Manual) 14 % (20-45) L Monocytes % (Manual) 7 % (1-10) Eosinophils % (Manual) 0 % (0-3) Basophils % (Manual) 0 % (0-2) Band Neutrophils 8 % (0-8) Platelet Estimate Adequate Platelet Morphology Normal Hypochromasia 1+ Anisocytosis 1+ Sodium Level 135 MMOL/L (136-145) L Potassium Level 3.0 MMOL/L (3.5-5.1) L Chloride Level 98 MMOL/L (98-107) Carbon Dioxide Level 19 MMOL/L (21-32) L Anion Gap 18 mmol/L (5-15) H Blood Urea Nitrogen 12 mg/dL (7-18) Creatinine 1.4 MG/DL (0.55-1.30) H Estimate Glomerular Filtration Rate 42.8 mL/min (>60) Glucose Level 104 MG/DL (74-106) Calcium Level 8.6 MG/DL (8.5-10.1) Total Bilirubin 0.4 MG/DL (0.2-1.0) Aspartate Amino Transferase (AST) 28 U/L (15-37) Alanine Aminotransferase (ALT) 24 U/L (12-78) Alkaline Phosphatase 103 U/L (46-116) Total Creatine Kinase 39 U/L (26-308) Total Protein 9.0 G/DL (6.4-8.2) H Albumin 3.3 G/DL (3.4-5.0) L Globulin 5.7 g/dL Albumin/Globulin Ratio 0.6 (1.0-2.7) L EKG Diagnostic Results Rate: tachycardiac Rhythm: other - S.tachycardia ST Segments: other - NSST Rhythm Strip Diag. Results EP Interpretation: yes Rate: 120's Rhythm: no PVC's, no ectopy, other - S.tachycardia Last Vital Signs Date Time Temp Pulse Resp B/P (MAP) Pulse Ox O2 Delivery O2 Flow Rate FiO2 7/24/18 19:01 98.0 06/11/18 18:52 108 16 105/81 98 Room Air Disposition: AGAINST MEDICAL ADVICE Condition: Serious Referrals: NON PHYSICIAN (PCP) Cass Dee DO Jun 11, 2018 20:53
--- NOTE | 2018-06-12 15:35 | Cardiology Report ---
APPROVED REPORT EKG Measurement Heart [id number] Sinus tachycardia Possible Left atrial enlargement Abnormal ECG
== END 2018-06-11 20:30 | disposition left against medical advice (07) ==
LOC: EMR 18:00
DX: G40.909 Epilepsy, unspecified, not intractable, without status epilepticus (principal); R00.0 Tachycardia, unspecified; R10.9 Unspecified abdominal pain; E87.6 Hypokalemia
CPT/HCPCS: 36415; 80053; 82550; 82962; 84703; 85007; 85025; 93005; 96361; 96365; 96375; 99283; J1953; J8499

== ENCOUNTER 2019-02-02 19:06 | Inpatient (IN) | payer MEDICAID, MEDICARE ==
[~2019-02-02] VITALS: Ht 162.6 cm; Wt 59.0 kg
[2019-02-02] MEDS ORDERED: LORazepam Inj 2mg/ml 1ml IV ONE ×2 (19:15→20:15)
[2019-02-02] MEDS ORDERED: levETIRAcetam 500 MG in D5W 110 ML IV ONE (19:15)
--- NOTE | 2019-02-02 19:25 | Emergency Room Report ---
History of Present Illness General Chief Complaint: Seizure Source: Family Member Present Illness HPI The patient presents with uncontrolled seizures since last night. She's also complaining about headache. She's been taking her Fioricet for the headache. She also has Ativan to use for the seizures. She's been vomiting uncontrollably also. She has several types of seizures. These have been tonic- clonic seizures leading to altered mentation afterwards. Apparently she's not been incontinent with these. Her denies any head trauma although the patient is complaining about headache at this time. The last seizure she had was 2 weeks ago. She was not evaluated at that time. She's not on any anticonvulsant aside from when necessary Ativan. 3 years ago the patient was diagnosed with multiple sclerosis. Was felt that this had a relation with her seizure activity. She's not being followed by a neurologist at this time. She was last seen by a physician a month ago at urgent care. She is not being treated for the multiple sclerosis. She has no primary physician. H/O migraines. She has been taking Fioricet. Admitted 2016 with these discharge diagnoses: 1. Multiple sclerosis exacerbation. 2. Intractable pain. 3. History of seizure disorder Patient seen 05/2018 with this assessment: This patient had narcotic seeking behavior. The patient refused all nonnarcotics even as a first attempt at controlling the patient's pain. I offered acetaminophen Phenergan and Toradol. The patient did take the [place] that I gave her. Basic laboratory workup to include a CBC, CMP did show a slight leukocytosis. Patient was also quite tachycardic during her ED course. I was concerned about pyelonephritis given the back and flank pain. I also wanted to obtain a CT of the patient's head. She did report a history of MS. Unfortunately, this patient refused to give a urinalysis. She also refused undergo a CT of her head or of her abdomen and pelvis. I really could not completely this patient's workup. She did have tachycardia. I did pull the [facility] report on this patient and she receives large quantities of oxycodone from her primary care physician and other controlled substances to include benzodiazepines. I had planned on fully working this patient up for an infection and for her tachycardia. However, the patient declined these tests. The patient then decided to leave AGAINST MEDICAL ADVICE. I cautioned the patient and her boyfriend that she should stay and undergo further workup for the tests that I had ordered. However, I suspect this patient is displeased with the lack of narcotic pain medication that she received. The patient left AGAINST MEDICAL ADVICE. Allergies: Coded Allergies: TOMATO (Verified Allergy, Severe, Anaphylaxis, 02/03/19) Patient History Limited by: medical condition Past Medical History: see triage record, old chart reviewed Past Surgical History: other - Aneurysm post coil placement Social History: Denies: smoking Social History Narrative Reviewed Nursing Documentation: PMH: Agreed; PSxH: Agreed Nursing Documentation-PMH Past Medical History: No History, Except For Hx Seizures: Yes Review of Systems All Other Systems: limited Physical Exam Vital Signs Date Time Temp Pulse Resp B/P (MAP) Pulse Ox O2 Delivery O2 Flow Rate FiO2 02/02/19 19:14 98.1 114 20 143/105 99 Room Air Sp02 EP Interpretation: reviewed, normal General Appearance: well appearing, mild distress, other - Vomiting uncontrollably Head: normocephalic Eyes: bilateral eye PERRL, bilateral eye EOMI, bilateral eye Scleral Injection ENT: moist mucus membranes - No lingual macerations - poor dentition Neck: supple Respiratory: lungs clear, normal breath sounds Cardiovascular #1: regular rate, rhythm Cardiovascular #2: 2+ radial (R) Gastrointestinal: normal inspection, normal bowel sounds, non tender, no mass, non-distended Musculoskeletal: back normal, normal range of motion Neurologic: alert, motor strength/tone normal, DTRs symmetric, sensory intact, other - Following commands but Psychiatric: depressed affect, other - Vomiting Skin: normal inspection, warm/dry, other - Tattoos Medical Decision Making Diagnostic Impression: Primary Impression: Uncontrolled seizures Qualified Codes: R56.9 - Unspecified convulsions Additional Impressions: Headache Qualified Codes: R51 - Headache Seizure-like activity ER Course Patient presents with multiple seizures since last night. In addition she is vomiting. Differential includes status epilepticus, electrolyte abnormality, acute seizure, brain bleed amongst others. Evaluation will be with EKG, CT the head, chest x-ray and labs. The patient will be treated with IV Ativan, Zofran and also Keppra. Patient is placed on a cardiac exercise physiologist. Patient with alleged seizure in CT. Ativan given. No incontinence or post ictal period. Labs with CBC and CMP. Urine tox positive for barbiturates. (Most likely related to Fioricet.) CT without bleed or mass. Chest x-ray without infiltrate. Still complaining about headache. Able to tolerate p.o. Morphine given for headache. Improved, but needs observation and neurologic consultation for uncontrolled seizures. Admit tele Dr. Nova. Laboratory Tests Test 02/02/19 19:30 02/02/19 19:55 White Blood Count 4.0 K/UL (4.8-10.8) L Red Blood Count 4.71 M/UL (4.20-5.40) Hemoglobin 8.8 G/DL (12.0-16.0) L Hematocrit 30.0 % (37.0-47.0) L Mean Corpuscular Volume 64 FL (80-99) L Mean Corpuscular Hemoglobin 18.8 PG (27.0-31.0) L Mean Corpuscular Hemoglobin Concent 29.5 G/DL (32.0-36.0) L Red Cell Distribution Width 13.8 % (11.6-14.8) Platelet Count 413 K/UL (150-450) Mean Platelet Volume 5.7 FL (6.5-10.1) L Neutrophils (%) (Auto) 43.3 % (45.0-75.0) L Lymphocytes (%) (Auto) 46.9 % (20.0-45.0) H Monocytes (%) (Auto) 6.8 % (1.0-10.0) Eosinophils (%) (Auto) 0.5 % (0.0-3.0) Basophils (%) (Auto) 2.5 % (0.0-2.0) H Sodium Level 140 MMOL/L (136-145) Potassium Level 3.3 MMOL/L (3.5-5.1) L Chloride Level 103 MMOL/L (98-107) Carbon Dioxide Level 24 MMOL/L (21-32) Anion Gap 13 mmol/L (5-15) Blood Urea Nitrogen 5 mg/dL (7-18) L Creatinine 0.8 MG/DL (0.55-1.30) Estimate Glomerular Filtration Rate > 60 mL/min (>60) Glucose Level 98 MG/DL (74-106) Calcium Level 9.2 MG/DL (8.5-10.1) Total Bilirubin 0.2 MG/DL (0.2-1.0) Aspartate Amino Transferase (AST) 15 U/L (15-37) Alanine Aminotransferase (ALT) 18 U/L (12-78) Alkaline Phosphatase 67 U/L (46-116) Total Creatine Kinase 50 U/L (26-308) Total Protein 8.9 G/DL (6.4-8.2) H Albumin 4.2 G/DL (3.4-5.0) Globulin 4.7 g/dL Albumin/Globulin Ratio 0.9 (1.0-2.7) L Salicylates Level 1.1 ug/mL (2.8-20) L Acetaminophen Level 3 MCG/ML (10-30) L Serum Alcohol < 3 mg/dL Urine Color Pale yellow Urine Appearance Clear Urine pH 7 (4.5-8.0) Urine Specific Rose 1.005 (1.005-1.035) Urine Protein Negative (NEGATIVE) Urine Glucose (UA) Negative (NEGATIVE) Urine Ketones 2+ (NEGATIVE) H Urine Blood Negative (NEGATIVE) Urine Nitrite Negative (NEGATIVE) Urine Bilirubin Negative (NEGATIVE) Urine Urobilinogen Normal MG/DL (0.0-1.0) Urine Leukocyte Esterase Negative (NEGATIVE) Urine HCG, Qualitative Negative (NEGATIVE) Urine Opiates Screen Negative (NEGATIVE) Urine Barbiturates Screen Positive (NEGATIVE) H Phencyclidine (PCP) Screen Negative (NEGATIVE) Urine Amphetamines Screen Negative (NEGATIVE) Urine Benzodiazepines Screen Negative (NEGATIVE) Urine Cocaine Screen Negative (NEGATIVE) Urine Marijuana (THC) Screen Negative (NEGATIVE) EKG Diagnostic Results Rate: tachycardiac Rhythm: NSR ST Segments: no acute changes Rhythm Strip Diag. Results EP Interpretation: yes Rhythm: no PVC's, no ectopy, other - ST Chest X-Ray Diagnostic Results Chest X-Ray Diagnostic Results : Chest X-Ray Ordered: Yes # of Views/Limited/Complete: 1 View Indication: Other EP Interpretation: Yes Interpretation: no consolidation, no effusion, no pneumothorax Impression: No acute disease Electronically Signed by: Electronically signed by Augustine Malone MD CT/MRI/US Diagnostic Results CT/MRI/US Diagnostic Results : Imaging Test Ordered: head Impression no bleed or masses Last Vital Signs Date Time Temp Pulse Resp B/P (MAP) Pulse Ox O2 Delivery O2 Flow Rate FiO2 02/03/19 02:04 98.0 02/03/19 00:31 Room Air 02/02/19 22:25 84 18 114/68 99 Status: improved Disposition: XFER SHT-TRM HOSP Augustine Malone MD Feb 02, 2019 19:24
[2019-02-02 19:30] VITALS: BP 143/105
--- NOTE | 2019-02-02 19:30 | NUR ---
ER Nurse Note: Pt brought in by spouse due to seizure x 3 on 02/01 and persistent vomiting since 199. Pt stated she is not on seizure medication and had a seizure 2 weeks ago. Pt expressed headache that is assoicated with her seizures; 8/10 pain on right side of head. Pt a&ox4, weak, pale; VSS. Pt vomited at bedside; aware. ERMD at pt side; will continue to montior.
[2019-02-02 19:57] LABS: BASOPHILS % (AUTO) 2.5 % (0.0-2.0); EOSINOPHILS % (AUTO) 0.5 % (0.0-3.0); HEMOGLOBIN 8.8 G/DL (12.0-16.0); LYMPHOCYTES % (AUTO) 46.9 % (20.0-45.0); MEAN CORPUSCULAR VOLUME 64 FL (80-99); MONOCYTES % (AUTO) 6.8 % (1.0-10.0); NEUTROPHILS % (AUTO) 43.3 % (45.0-75.0); PLATELET COUNT 413 K/UL (150-450); RED BLOOD COUNT 4.71 M/UL (4.20-5.40); RED CELL DISTRIBUTION WIDTH 13.8 % (11.6-14.8)
[2019-02-02 20:23] LABS: ANION GAP 13 mmol/L (5-15); BLOOD UREA NITROGEN 5 mg/dL (7-18); CALCIUM 9.2 MG/DL (8.5-10.1); CARBON DIOXIDE 24 MMOL/L (21-32); CHLORIDE 103 MMOL/L (98-107); CREATININE 0.8 MG/DL (0.55-1.30); POTASSIUM 3.3 MMOL/L (3.5-5.1); SODIUM 140 MMOL/L (136-145)
[2019-02-02 20:27] LABS: ALANINE AMINOTRANSFERASE 18 U/L (12-78); ALBUMIN 4.2 G/DL (3.4-5.0); ALBUMIN/GLOBULIN RATIO 0.9 (1.0-2.7); ALKALINE PHOSPHATASE 67 U/L (46-116); ASPARTATE AMINO TRANSFERASE 15 U/L (15-37); BILIRUBIN,TOTAL 0.2 MG/DL (0.2-1.0); CREATINE KINASE 50 U/L (26-308)
[2019-02-02 20:44] LABS: APPEARANCE,URINE CLEAR; BILIRUBIN, URINE NEGATIVE (NEGATIVE); COLOR,URINE PALE YELLOW; GLUCOSE, URINE (UA) NEGATIVE (NEGATIVE); KETONES,URINE 2+ (NEGATIVE); LEUKOCYTE ESTERASE ,URINE NEGATIVE (NEGATIVE); NITRITE,URINE NEGATIVE (NEGATIVE); PH,URINE 7 (4.5-8.0); PROTEIN,URINE NEGATIVE (NEGATIVE); UROBILINOGEN,URINE NORMAL MG/DL (0.0-1.0)
[2019-02-02 21:20] VITALS: BP 127/74
--- NOTE | 2019-02-02 21:20 | NUR ---
ER Nurse Note: Ativan given when pt went to CT; pt tolerated well; awaiting results. All orders completed per ERMD orders. Seizure precautions done; provided dark environment; no seizure activity. took belongings. Pt pending placement; will continue to montior.
[2019-02-02] MEDS ORDERED: Miralax 17gm pkt ORAL PRN (21:30)
[2019-02-02] MEDS ORDERED: Mylanta II UD 30ml ORAL PRN (21:30)
[2019-02-02] MEDS ORDERED: Dextrose 50% 25ml Syringe IV PRN (21:45)
[2019-02-02] MEDS ORDERED: Morphine Sulfate 4mg/ml Inj (IV USE ONLY) IVP ONE (21:45)
[2019-02-02 22:11] VITALS: BP 114/68
--- NOTE | 2019-02-02 22:35 | NUR ---
ER Nurse Note: Report given to HAFSA Rosas in tele for continuity of care. Pt a&ox4, VSS, no signs of distress. Pt left with all belongings.
--- NOTE | 2019-02-02 23:10 | NUR ---
NURSE NOTES: Gave first dose of ativan. Medication administration didnt register in the eMAR. Pt felt like she was going to have a seizure. Will continue to monitor.
[2019-02-02] MEDS: Zolpidem 5mg tab ORAL PRN (23:38)
[2019-02-03] VITALS: BP 115/81
[2019-02-03] MEDS: LORazepam Inj 2mg/ml 1ml IV PRN ×3 (00:56→20:30)
--- NOTE | 2019-02-03 01:04 | NUR ---
NURSE NOTES: Called and left a message with Dr. Nova and Dr. Newman regarding pts request fro percocet and fioricet for her pain and migrains. Awaiting call back.
[2019-02-03 04:00] VITALS: BP 118/84
[2019-02-03] MEDS: Morphine Sulfate 2mg/ml Inj(IV/IM USE ONLY) IVP PRN ×3 (05:35→17:06)
[2019-02-03 07:35] LABS: HEMATOCRIT 25.6 % (37.0-47.0); HEMOGLOBIN 7.7 G/DL (12.0-16.0); MEAN CORPUSCULAR VOLUME 64 FL (80-99); PLATELET COUNT 356 K/UL (150-450); RED BLOOD COUNT 4.02 M/UL (4.20-5.40); RED CELL DISTRIBUTION WIDTH 14.3 % (11.6-14.8); WHITE BLOOD COUNT 4.6 K/UL (4.8-10.8)
[2019-02-03 07:40] LABS: ALANINE AMINOTRANSFERASE 21 U/L (12-78); ALBUMIN 3.6 G/DL (3.4-5.0); ALBUMIN/GLOBULIN RATIO 0.9 (1.0-2.7); ALKALINE PHOSPHATASE 55 U/L (46-116); ANION GAP 10 mmol/L (5-15); ASPARTATE AMINO TRANSFERASE 5 U/L (15-37); BILIRUBIN,TOTAL 0.2 MG/DL (0.2-1.0); BLOOD UREA NITROGEN 7 mg/dL (7-18); CALCIUM 8.4 MG/DL (8.5-10.1); CARBON DIOXIDE 26 MMOL/L (21-32); CHLORIDE 104 MMOL/L (98-107); CREATININE 0.8 MG/DL (0.55-1.30); POTASSIUM 3.1 MMOL/L (3.5-5.1); SODIUM 140 MMOL/L (136-145)
--- NOTE | 2019-02-03 07:49 | NUR ---
NURSE NOTES: Left message with Sheri at message service for Dr. Douglas Nova reporting Hemoglobin=7.7, hematocrit=25.6, potassium=3.1. Will continue to monitor patient.
--- NOTE | 2019-02-03 07:58 | NUR ---
HAND-OFF: Report given to HAFSA Mka.
[2019-02-03 08:00] VITALS: BP 120/79
--- NOTE | 2019-02-03 08:06 | NUR ---
NURSE NOTES: received order from Dr. Newman for fioricept and percocet prn q6. will input order.
[2019-02-03] MEDS ORDERED: oxyCODONE HCL/Acetaminophen 5/325mg ORAL PRN (08:15)
--- NOTE | 2019-02-03 08:22 | NUR ---
NURSE NOTES: Patient awake and alert, in semi-Jones's position, c/o pain 10/10 headache, on room air, side rails padded, bed in lowest position, call light within reach.
[2019-02-03] MEDS: Heparin 5000 units/ml inj SUBQ SCH ×2 (08:56→21:45)
[2019-02-03] MEDS ORDERED: BuPROPion XL 150mg tab ORAL SCH (09:00)
--- NOTE | 2019-02-03 11:55 | Consultation ---
History of Present Illness General Date patient seen: Feb 03, 2019 Chief Complaint: Seizure Present Illness HPI 33 year old female with hx of MS, migraine, seizure disorder who stopped taking her seizure meds brought in by paramedics after an seizure event. Pt is awake now, seems sleepy claiming that she didn't get a good night sleep. Allergies: Coded Allergies: TOMATO (Verified Allergy, Severe, Anaphylaxis, 02/03/19) Medication History Scheduled Acetamin/Butalbital/Caffeine* (Fioricet*), 1 TAB ORAL Q4H, (Reported) Bupropion Hcl* (Wellbutrin Xl*), 150 MG ORAL DAILY, (Reported) Divalproex Sodium (Depakote), 250 MG PO BID, (Reported) Scheduled PRN Lorazepam* (Ativan*), 1 MG ORAL PRN PRN for For Anxiety, (Reported) Zolpidem Tartrate* (Ambien*), 10 MG ORAL BEDTIME PRN for Insomnia, (Reported) Patient History Healthcare decision maker Resuscitation status Full Code Advanced Directive on File Past Medical/Surgical History Past Medical/Surgical History: (1) Seizure disorder (2) Multiple sclerosis Review of Systems Constitutional: Reports: no symptoms Eye: Reports: no symptoms Physical Exam General Appearance: WD/WN, lethargic Lines, tubes and drains: peripheral HEENT: normocephalic, atraumatic Neck: non-tender, normal alignment, limited range of motion Respiratory/Chest: chest wall non-tender, lungs clear Cardiovascular/Chest: normal peripheral pulses Abdomen: normal bowel sounds Last 24 Hour Vital Signs Date Time Temp Pulse Resp B/P (MAP) Pulse Ox O2 Delivery O2 Flow Rate FiO2 02/03/19 09:20 97.4 02/03/19 08:00 97.4 91 18 120/79 (93) 98 02/03/19 04:00 98.3 94 16 118/84 (95) 98 02/03/19 04:00 80 02/03/19 02:04 98.0 02/03/19 00:31 Room Air 02/03/19 00:00 97 02/03/19 00:00 99.2 95 18 115/81 (92) 99 02/02/19 22:25 98.0 84 18 114/68 99 Room Air 02/02/19 22:11 98.0 84 18 114/68 99 Room Air 02/02/19 21:20 98.2 78 16 127/74 99 Room Air 02/02/19 19:30 98.1 96 20 143/105 99 Room Air 02/02/19 19:30 114 20 Room Air 02/02/19 19:14 98.1 114 20 143/105 99 Room Air Intake and Output 02/02/19 02/03/19 19:00 07:00 Intake Total 1115 ml Output Total 200 ml Balance 915 ml IV Total 1115 ml Output Urine Total 200 ml # Voids 1 Laboratory Tests Test 02/02/19 19:30 02/02/19 19:55 02/03/19 06:00 White Blood Count 4.0 K/UL (4.8-10.8) L 4.6 K/UL (4.8-10.8) L Red Blood Count 4.71 M/UL (4.20-5.40) 4.02 M/UL (4.20-5.40) L Hemoglobin 8.8 G/DL (12.0-16.0) L 7.7 G/DL (12.0-16.0) L Hematocrit 30.0 % (37.0-47.0) L 25.6 % (37.0-47.0) L Mean Corpuscular Volume 64 FL (80-99) L 64 FL (80-99) L Mean Corpuscular Hemoglobin 18.8 PG (27.0-31.0) L 19.1 PG (27.0-31.0) L Mean Corpuscular Hemoglobin Concent 29.5 G/DL (32.0-36.0) L 29.9 G/DL (32.0-36.0) L Red Cell Distribution Width 13.8 % (11.6-14.8) 14.3 % (11.6-14.8) Platelet Count 413 K/UL (150-450) 356 K/UL (150-450) Mean Platelet Volume 5.7 FL (6.5-10.1) L 5.7 FL (6.5-10.1) L Neutrophils (%) (Auto) 43.3 % (45.0-75.0) L % (45.0-75.0) Lymphocytes (%) (Auto) 46.9 % (20.0-45.0) H % (20.0-45.0) Monocytes (%) (Auto) 6.8 % (1.0-10.0) % (1.0-10.0) Eosinophils (%) (Auto) 0.5 % (0.0-3.0) % (0.0-3.0) Basophils (%) (Auto) 2.5 % (0.0-2.0) H % (0.0-2.0) Sodium Level 140 MMOL/L (136-145) 140 MMOL/L (136-145) Potassium Level 3.3 MMOL/L (3.5-5.1) L 3.1 MMOL/L (3.5-5.1) L Chloride Level 103 MMOL/L (98-107) 104 MMOL/L (98-107) Carbon Dioxide Level 24 MMOL/L (21-32) 26 MMOL/L (21-32) Anion Gap 13 mmol/L (5-15) 10 mmol/L (5-15) Blood Urea Nitrogen 5 mg/dL (7-18) L 7 mg/dL (7-18) Creatinine 0.8 MG/DL (0.55-1.30) 0.8 MG/DL (0.55-1.30) Estimat Glomerular Filtration Rate > 60 mL/min (>60) > 60 mL/min (>60) Glucose Level 98 MG/DL (74-106) 91 MG/DL (74-106) Calcium Level 9.2 MG/DL (8.5-10.1) 8.4 MG/DL (8.5-10.1) L Total Bilirubin 0.2 MG/DL (0.2-1.0) 0.2 MG/DL (0.2-1.0) Aspartate Amino Transf (AST/SGOT) 15 U/L (15-37) 5 U/L (15-37) L Alanine Aminotransferase (ALT/SGPT) 18 U/L (12-78) 21 U/L (12-78) Alkaline Phosphatase 67 U/L (46-116) 55 U/L (46-116) Total Creatine Kinase 50 U/L (26-308) Total Protein 8.9 G/DL (6.4-8.2) H 7.7 G/DL (6.4-8.2) Albumin 4.2 G/DL (3.4-5.0) 3.6 G/DL (3.4-5.0) Globulin 4.7 g/dL 4.1 g/dL Albumin/Globulin Ratio 0.9 (1.0-2.7) L 0.9 (1.0-2.7) L Salicylates Level 1.1 ug/mL (2.8-20) L Acetaminophen Level 3 MCG/ML (10-30) L Serum Alcohol < 3 mg/dL Urine Color Pale yellow Urine Appearance Clear Urine pH 7 (4.5-8.0) Urine Specific [place] 1.005 (1.005-1.035) Urine Protein Negative (NEGATIVE) Urine Glucose (UA) Negative (NEGATIVE) Urine Ketones 2+ (NEGATIVE) H Urine Blood Negative (NEGATIVE) Urine Nitrite Negative (NEGATIVE) Urine Bilirubin Negative (NEGATIVE) Urine Urobilinogen Normal MG/DL (0.0-1.0) Urine Leukocyte Esterase Negative (NEGATIVE) Urine HCG, Qualitative Negative (NEGATIVE) Urine Opiates Screen Negative (NEGATIVE) Urine Barbiturates Screen Positive (NEGATIVE) H Phencyclidine (PCP) Screen Negative (NEGATIVE) Urine Amphetamines Screen Negative (NEGATIVE) Urine Benzodiazepines Screen Negative (NEGATIVE) Urine Cocaine Screen Negative (NEGATIVE) Urine Marijuana (THC) Screen Negative (NEGATIVE) Differential Total Cells Counted 100 Neutrophils % (Manual) 51 % (45-75) Lymphocytes % (Manual) 48 % (20-45) H Monocytes % (Manual) 1 % (1-10) Eosinophils % (Manual) 0 % (0-3) Basophils % (Manual) 0 % (0-2) Band Neutrophils 0 % (0-8) Platelet Estimate Adequate Platelet Morphology Normal Hypochromasia 2+ Anisocytosis 1+ Microcytosis 2+ Height (Feet): 5 Height (Inches): 4.00 Weight (Pounds): 130 Medications Current Medications Medications (Trade) Dose Ordered Sig/Ramon Route PRN Reason Start Time Stop Time Status Last Admin Dose Admin Acetaminophen (Tylenol) 650 mg Q4H PRN ORAL fever 02/02/19 21:30 03/04/19 21:29 Acetaminophen/ Butalbital/ Caffeine (Fioricet) 1 tab Q6H PRN ORAL Mild Pain (Pain Scale 1-3) 02/03/19 08:15 03/05/19 08:14 02/03/19 08:50 Al Hydroxide/Mg Hydroxide (Mylanta II) 30 ml Q6H PRN ORAL dyspepsia 02/02/19 21:30 03/04/19 21:29 Bupropion HCl (Wellbutrin XL) 150 mg DAILY ORAL 02/03/19 09:00 03/05/19 08:59 02/03/19 08:44 Dextrose (Dextrose 50%) 25 ml Q30M PRN IV Hypoglycemia 02/02/19 21:45 03/04/19 21:33 Dextrose (Dextrose 50%) 50 ml Q30M PRN IV hypoglycemia 02/02/19 21:45 03/04/19 21:44 Divalproex Sodium (Depakote) 250 mg BID ORAL 02/03/19 09:00 03/05/19 08:59 02/03/19 08:42 Heparin Sodium (Porcine) (Heparin 5000 units/ml) 5,000 units EVERY 12 HOURS SUBQ 02/03/19 09:00 03/05/19 08:59 02/03/19 08:56 Iron Sucrose 100 mg/Sodium Chloride 60 ml @ 240 mls/hr ONCE ONCE IVPB 02/03/19 12:00 02/03/19 12:14 UNV Lorazepam (Ativan 2mg/ml 1ml) 2 mg Q1H PRN IV seizures 02/02/19 21:30 02/09/19 21:29 02/03/19 05:33 Morphine Sulfate (Morphine Sulfate) 1 mg Q4H PRN IVP For Pain 02/02/19 21:30 02/09/19 21:29 02/03/19 05:35 Ondansetron HCl (Zofran) 4 mg Q6H PRN IVP Nausea & Vomiting 02/02/19 21:30 03/04/19 21:29 Ondansetron HCl (Zofran) 4 mg Q6H PRN IVP Nausea & Vomiting 02/02/19 22:15 03/04/19 22:14 Oxycodone/ Acetaminophen (Percocet 5-325) 1 tab Q4H PRN ORAL severe pain 7-10 02/03/19 08:15 02/10/19 08:14 Polyethylene Glycol (Miralax) 17 gm HSPRN PRN ORAL Constipation 02/02/19 21:30 03/04/19 21:29 Zolpidem Tartrate (Ambien) 5 mg HSPRN PRN ORAL Insomnia 02/02/19 21:30 02/09/19 21:29 02/02/19 23:38 Assessment/Plan Problem List: (1) Uncontrolled seizures ICD Codes: R56.9 - Unspecified convulsions SNOMED: 65927188 Qualifiers: Qualified Codes: R56.9 - Unspecified convulsions (2) Multiple sclerosis ICD Codes: G35 - Multiple sclerosis SNOMED: 15468414 (3) Seizure disorder ICD Codes: G40.909 - Epilepsy, unspecified, not intractable, without status epilepticus SNOMED: 644852208 (4) Severe anemia ICD Codes: D64.9 - Anemia, unspecified SNOMED: 144234739 Assessment/Plan resume depakote symptomatic treatment anemia w/u dvt prophylaxis. Angel Luis Newman MD Feb 03, 2019 11:55
[2019-02-03 12:00] VITALS: BP 119/74
--- NOTE | 2019-02-03 12:04 | Diagnostic Imaging Report ---
Indications: Seizures Technique: Spiral acquisitions obtained through the brain. Angled axial and coronal 5 x 5 mm slices were reconstructed. Total dose length product 1316.38 mGycm. CTDI vol(s) 70.38 mGy. Dose reduction achieved using automated exposure control Comparison: None. Findings: There is image degradation due to motion artifact. No definite acute intracranial hemorrhage or edema, mass effect, nor midline shift. Grossly normal yuna-white differentiation. Intact calvarium. Visualized orbits and sinuses are unremarkable. The mastoids are clear. Impression: Limited exam, due to patient motion artifact. Subtle pathology could be missed No gross acute intracranial bleed or mass effect. This agrees with the preliminary interpretation provided overnight by [facility] teleradiology service. The CT scanner at [facility] is accredited by the [employer] and the scans are performed using protocols designed to limit radiation exposure to as low as reasonably achievable to attain images of sufficient resolution adequate for diagnostic evaluation.
[2019-02-03 12:15] LABS: IRON 12 ug/dL (50-175); TOTAL IRON BINDING CAPACITY 418 ug/dL (250-450)
[2019-02-03 12:16] LABS: % IRON SATURATION 3 % (15-50)
[2019-02-03 12:23] LABS: FERRITIN 4 NG/ML (8-388)
--- NOTE | 2019-02-03 13:43 | NUR ---
CASE MANAGEMENT:REVIEW 33YR OLD FEMALE FROM HOME TO ER CC: SEIZURE X3 AND PERSISTENT VOMITING SI: UNCONTROLLED SEIZURE. HEADACHE 98.0 114 20 143/105 99% ON RA H/H-8.8/30.0 K-3.3 IS: IV KEPPRA IV ATIVAN X2 1L NS BOLUS IV ZOFRAN CT HEAD : TO TELEMETRY PLAN: SEIZURE PRECAUTIONS NEURO CHECKS Q4HRS INTERQUAL CRITERIA MET
[2019-02-03] MEDS ORDERED: Iron Sucrose 100 MG in NS 55 ML IV ONE (14:00)
--- NOTE | 2019-02-03 14:18 | Diagnostic Imaging Report ---
Indication: Chest pain Technique: One view of the chest Comparison: None Findings: Lungs and pleural spaces are clear. Heart size is normal Impression: No acute process
[2019-02-03 16:00] VITALS: BP 126/76
[2019-02-03 20:00] VITALS: BP 128/76
--- NOTE | 2019-02-03 20:00 | NUR ---
pt in bed at bedside. no acute distress noted. seizures precautions in place. will continue to monitor.
--- NOTE | 2019-02-03 20:38 | NUR ---
HAND-OFF: Report given to Geno Melo RN. Patient in supine position, awake and alert, at bedside, bed in lowest position, call light within reach.
[2019-02-03] MEDS: Zolpidem 5mg tab ORAL PRN (21:38)
--- NOTE | 2019-02-03 22:00 | Consultation ---
DATE OF CONSULTATION: 02/03/2019 CONSULTING PHYSICIAN: Armand Lobo M.D. REFERRING PHYSICIAN: Douglas Nova D.O. REASON FOR CONSULTATION: 1. Electrolyte abnormalities. 2. Hypokalemia. HISTORY OF PRESENT ILLNESS: The patient is a pleasant 33-year-old female with a history of MS along with migraines and a seizure disorder. She had stopped taking her seizure medications and then she was brought in by paramedics after recent seizure event. The patient is in no overt distress. Denies any chest pain or current shortness of breath. Noted to have a low potassium of 3.1, which decreased from the day prior from 3.3. Her renal function is stable. She denies any current nausea, vomiting, diarrhea, or chest pain. PAST MEDICAL HISTORY: 1. Multiple sclerosis. 2. Seizure disorder. 3. Intractable pain. PAST SURGICAL HISTORY: Status post stent placement and aneurysm. ALLERGIES: Tomatoes. SOCIAL HISTORY: Denies any tobacco, current alcohol, or illicit drug use. FAMILY HISTORY: Noncontributory. REVIEW OF SYSTEMS: NEUROLOGIC: The patient denies seizure. CARDIOVASCULAR: No current chest pain, palpitations, or angina. PULMONARY: No difficulty breathing, productive cough, or sputum. GASTROINTESTINAL/GENITOURINARY: No change in bowel habits. No nausea, vomiting, or diarrhea. ENDOCRINOLOGY: No night sweats, fevers, or chills. PHYSICAL EXAMINATION: VITAL SIGNS: Blood pressure 126/76, respiratory rate 18, pulse 73, temperature 98.2, and 97% oxygen on room air. GENERAL: The patient is awake, alert, coherent, and oriented in all four spheres. HEENT: Extraocular muscles intact. No lymphadenopathy noted. CARDIOVASCULAR: S1, S2. No rubs or gallops. PULMONARY: Clear to auscultation bilaterally. No rales, rhonchi, or wheezes. ABDOMEN: Nondistended and nontender. EXTREMITIES: No edema. LABORATORY DATA: Laboratories dated 02/03/2019, potassium 3.1, sodium 140, and creatinine 0.8. AST and ALT are within normal limits. Albumin 3.6. ASSESSMENT AND PLAN: 1. Electrolyte abnormalities with low potassium/hypokalemia. The patient will be replaced on 60 potassium chloride p.o. x1. The patient will initiate good oral intake and we will monitor for possible refeeding syndrome. In the morning, we will repeat a basic metabolic panel including potassium, magnesium, and phosphorus. Once electrolytes have been repleted, no further requirement will be necessary. 2. Seizure disorder. Off of medications. Continue her home dose medications. Seizure has resolved. No current Flex's paralysis. 3. History of multiple sclerosis. Defer management to primary care physician. Let me take this opportunity to thank Dr. Nova. Armand Lobo MD DR: SAMARA JOB#: [id number] CC: DINESH
[2019-02-04] VITALS: BP 136/81
--- NOTE | 2019-02-04 00:15 | History and Physical Report ---
DATE OF ADMISSION: 02/02/2019 TIME SEEN: On 02/03/2019 at 2 p.m. CONSULTANTS: 1. Angel Luis Newman M.D. 2. Yann Diego M.D. 3. Jose Fried M.D. CHIEF COMPLAINT: Uncontrolled seizure and headache. BRIEF HISTORY: This is a 33-year-old female, who lives at home, presents yesterday with uncontrolled seizure. She had one seizure this morning, currently resting in bed, complaining of 5/10 headache and slight nausea. No complaint. REVIEW OF SYSTEMS: No chest pain. No shortness of breath. Slight nausea. No vomiting or diarrhea. PAST MEDICAL HISTORY: Seizure and MS. PAST SURGICAL HISTORY: Appendectomy. ALLERGIES: Denies. MEDICATIONS: Include , divalproex, heparin, oxycodone, and Zofran. SOCIAL HISTORY: No smoking. No alcohol. No intravenous drug abuse. FAMILY HISTORY: Noncontributory. PHYSICAL EXAMINATION: GENERAL: Slightly anxious in bed, oriented x3, in no acute distress. VITAL SIGNS: Temperature 97 degrees, pulse 87, respiratory rate 16, and blood pressure 119/74. CARDIOVASCULAR: No murmur. LUNGS: Distant and clear. ABDOMEN: Bowel sounds positive. Nontender. Nondistended. EXTREMITIES: No cyanosis, clubbing, or edema. NEUROLOGIC: The patient moves all extremities, slightly weak. LABORATORY DATA: Labs at this time show hemoglobin 7.7 and white count 4.6. BMP shows potassium 3.1. Urinalysis shows 2+ ketone. Urine tox positive for barbiturates. ASSESSMENT: 1. Seizure. 2. Headache. 3. MS. 4. Anemia. PLAN: 1. Seizure control. 2. Pain control. 3. Dietary followup. 4. Transfuse p.r.n. 5. CBC and BMP in the morning. 6. Dr. Ballesteros and Dr. Galan evaluation. 7. Continue to follow the patient. Douglas Nova D.O. DR: RIVER JOB#: [id number] CC:
[2019-02-04] MEDS: Morphine Sulfate 2mg/ml Inj(IV/IM USE ONLY) IVP PRN ×2 (00:33→05:50)
[2019-02-04] MEDS: LORazepam Inj 2mg/ml 1ml IV PRN (01:37)
[2019-02-04 04:00] VITALS: BP 126/79
[2019-02-04 06:50] VITALS: BP 126/76
--- NOTE | 2019-02-04 06:50 | NUR ---
NURSE NOTES:Patient received from Geno Haines 2East telemetry patient from 220 bed 1 transferred to 315 bed 1 . RFA G#22 H/L Patent and intact . Patient personal belongings checked with patient and signed and given to patient . patient family notified and aware. Patient denies any pain at this time . no s/s of distress . call light within reach . bed in low position at all times . will continue to monitor.
--- NOTE | 2019-02-04 06:50 | NUR ---
pt transferred pt to Med surg. bed 315 bed 1, belonging list check and signed by this technical writer and editor and accepting nurse maurice. left in stable condition, removed telemonitor from pt and returned to pest control service technician 2 east
[2019-02-04] MEDS ORDERED: oxyCODONE HCL/Acetaminophen 5/325mg ORAL PRN (07:30)
[2019-02-04] MEDS ORDERED: LORazepam Inj 2mg/ml 1ml IV PRN (07:30)
[2019-02-04] MEDS ORDERED: Morphine Sulfate 2mg/ml Inj(IV/IM USE ONLY) IVP PRN (07:30)
--- NOTE | 2019-02-04 07:55 | NUR ---
HAND-OFF: Report given TO Eladio HainesPatient in stable condition .
[2019-02-04 08:00] VITALS: BP 129/81
[2019-02-04] MEDS ORDERED: Mylanta II UD 30ml ORAL PRN (08:00)
[2019-02-04 08:08] LABS: BASOPHILS % (AUTO) 1.6 % (0.0-2.0); EOSINOPHILS % (AUTO) 0.8 % (0.0-3.0); HEMATOCRIT 27.8 % (37.0-47.0); HEMOGLOBIN 8.1 G/DL (12.0-16.0); LYMPHOCYTES % (AUTO) 43.3 % (20.0-45.0); MEAN CORPUSCULAR VOLUME 63 FL (80-99); MONOCYTES % (AUTO) 8.5 % (1.0-10.0); NEUTROPHILS % (AUTO) 45.8 % (45.0-75.0); PLATELET COUNT 362 K/UL (150-450); RED BLOOD COUNT 4.37 M/UL (4.20-5.40); RED CELL DISTRIBUTION WIDTH 14.3 % (11.6-14.8); WHITE BLOOD COUNT 4.7 K/UL (4.8-10.8)
[2019-02-04 08:25] LABS: ANION GAP 12 mmol/L (5-15); BLOOD UREA NITROGEN 7 mg/dL (7-18); CARBON DIOXIDE 25 MMOL/L (21-32); CHLORIDE 100 MMOL/L (98-107); CREATININE 0.7 MG/DL (0.55-1.30); LACTATE DEHYDROGENASE 163 U/L (81-234); POTASSIUM 3.3 MMOL/L (3.5-5.1); SODIUM 137 MMOL/L (136-145)
[2019-02-04 08:38] LABS: % IRON SATURATION 35 % (15-50); IRON 150 ug/dL (50-175); TOTAL IRON BINDING CAPACITY 429 ug/dL (250-450)
--- NOTE | 2019-02-04 08:50 | NUR ---
NURSE NOTES: during shift change patient alert oriented wit out no distress reporting headache and generalized pain Fioricet and Percocet requested and given will continue to monitor.
[2019-02-04] MEDS ORDERED: Heparin 5000 units/ml inj SUBQ SCH (09:00)
[2019-02-04] MEDS ORDERED: BuPROPion XL 150mg tab ORAL SCH (09:00)
[2019-02-04 09:01] LABS: PHOSPHORUS 3.1 MG/DL (2.5-4.9)
--- NOTE | 2019-02-04 09:05 | Consultation ---
History of Present Illness General Chief Complaint: Present Illness Allergies: Coded Allergies: TOMATO (Verified Allergy, Severe, Anaphylaxis, 02/03/19) Medication History Scheduled Acetamin/Butalbital/Caffeine* (Fioricet*), 1 TAB ORAL Q4H, (Reported) Bupropion Hcl* (Wellbutrin Xl*), 150 MG ORAL DAILY, (Reported) Divalproex Sodium (Depakote), 250 MG PO BID, (Reported) Scheduled PRN Lorazepam* (Ativan*), 1 MG ORAL PRN PRN for For Anxiety, (Reported) Zolpidem Tartrate* (Ambien*), 10 MG ORAL BEDTIME PRN for Insomnia, (Reported) Patient History Healthcare decision maker Resuscitation status Full Code Advanced Directive on File Physical Exam Last 24 Hour Vital Signs Date Time Temp Pulse Resp B/P (MAP) Pulse Ox O2 Delivery O2 Flow Rate FiO2 02/04/19 06:50 97.2 83 20 126/76 (93) 99 02/04/19 04:00 97.9 98 20 126/79 (95) 99 02/04/19 04:00 77 02/04/19 00:00 77 02/04/19 00:00 99.0 76 18 136/81 (99) 96 02/03/19 21:00 Room Air 02/03/19 20:00 97.9 82 20 128/76 (93) 100 02/03/19 20:00 96 02/03/19 17:36 98.2 02/03/19 16:00 93 02/03/19 16:00 98.2 73 18 126/76 (93) 97 02/03/19 12:00 98.8 80 16 119/74 (89) 97 02/03/19 12:00 77 02/03/19 09:20 97.4 Intake and Output 02/03/19 02/04/19 18:59 06:59 Intake Total 360 ml 600 ml Output Total 600 ml Balance -240 ml 600 ml Intake Oral 360 ml 600 ml Output Urine Total 600 ml # Voids 3 Laboratory Tests Test 02/04/19 06:09 White Blood Count 4.7 K/UL (4.8-10.8) L Red Blood Count 4.37 M/UL (4.20-5.40) Hemoglobin 8.1 G/DL (12.0-16.0) L Hematocrit 27.8 % (37.0-47.0) L Mean Corpuscular Volume 63 FL (80-99) L Mean Corpuscular Hemoglobin 18.5 PG (27.0-31.0) L Mean Corpuscular Hemoglobin Concent 29.2 G/DL (32.0-36.0) L Red Cell Distribution Width 14.3 % (11.6-14.8) Platelet Count 362 K/UL (150-450) Mean Platelet Volume 5.7 FL (6.5-10.1) L Neutrophils (%) (Auto) 45.8 % (45.0-75.0) Lymphocytes (%) (Auto) 43.3 % (20.0-45.0) Monocytes (%) (Auto) 8.5 % (1.0-10.0) Eosinophils (%) (Auto) 0.8 % (0.0-3.0) Basophils (%) (Auto) 1.6 % (0.0-2.0) Neutrophils % (Manual) Pending Lymphocytes % (Manual) Pending Platelet Estimate Pending Platelet Morphology Pending Erythrocyte Sedimentation Rate Pending Reticulocyte Count Pending Prothrombin Time 10.5 SEC (9.30-11.50) Prothromb Time International Ratio 1.0 (0.9-1.1) Activated Partial Thromboplast Time 25 SEC (23-33) Sodium Level 137 MMOL/L (136-145) Potassium Level 3.3 MMOL/L (3.5-5.1) L Chloride Level 100 MMOL/L (98-107) Carbon Dioxide Level 25 MMOL/L (21-32) Anion Gap 12 mmol/L (5-15) Blood Urea Nitrogen 7 mg/dL (7-18) Creatinine 0.7 MG/DL (0.55-1.30) Estimat Glomerular Filtration Rate > 60 mL/min (>60) Glucose Level 82 MG/DL (74-106) Calcium Level 9.0 MG/DL (8.5-10.1) Phosphorus Level Pending Magnesium Level Pending Iron Level 150 ug/dL (50-175) Total Iron Binding Capacity 429 ug/dL (250-450) Percent Iron Saturation 35 % (15-50) Unsaturated Iron Binding 279 ug/dL (112-346) Lactate Dehydrogenase 163 U/L (81-234) Carcinoembryonic Antigen Pending Vitamin B12 Level Pending Folate Pending Height (Feet): 5 Height (Inches): 4.00 Weight (Pounds): 130 Medications Current Medications Medications (Trade) Dose Ordered Sig/Ramon Route PRN Reason Start Time Stop Time Status Last Admin Dose Admin Acetaminophen (Tylenol) 650 mg Q4H PRN ORAL T>100.5 02/04/19 09:30 03/04/19 21:29 Acetaminophen/ Butalbital/ Caffeine (Fioricet) 1 tab Q6H PRN ORAL Mild Pain (Pain Scale 1-3)/HSIEH 02/04/19 08:15 03/05/19 08:14 02/04/19 08:39 Al Hydroxide/Mg Hydroxide (Mylanta II) 30 ml Q6H PRN ORAL dyspepsia 02/04/19 08:00 03/04/19 07:59 Bupropion HCl (Wellbutrin XL) 150 mg DAILY ORAL 02/04/19 09:00 03/05/19 08:59 02/04/19 08:38 Dextrose (Dextrose 50%) 25 ml Q30M PRN IV Hypoglycemia 02/04/19 07:15 03/04/19 21:33 Dextrose (Dextrose 50%) 50 ml Q30M PRN IV hypoglycemia 02/04/19 07:15 03/04/19 21:44 Divalproex Sodium (Depakote) 250 mg Q12HR ORAL 02/04/19 09:00 03/06/19 08:59 02/04/19 08:38 Heparin Sodium (Porcine) (Heparin 5000 units/ml) 5,000 units EVERY 12 HOURS SUBQ 02/04/19 09:00 03/05/19 08:59 02/04/19 08:40 Iron Sucrose 100 mg/Sodium Chloride 60 ml @ 240 mls/hr BEDTIME IV 02/04/19 21:00 02/07/19 21:14 Lorazepam (Ativan 2mg/ml 1ml) 2 mg Q1H PRN IV seizures 02/04/19 07:30 02/09/19 21:29 Morphine Sulfate (Morphine Sulfate) 1 mg Q4H PRN IVP Severe Pain (Pain Scale 7-10) 02/04/19 07:30 02/09/19 07:29 Ondansetron HCl (Zofran) 4 mg Q6H PRN IVP Nausea & Vomiting 3/19/19 08:00 03/04/19 07:59 Oxycodone/ Acetaminophen (Percocet 5-325) 1 tab Q4H PRN ORAL Moderate Pain (Pain Scale 4-6) 02/04/19 07:30 02/10/19 07:29 02/04/19 08:47 Polyethylene Glycol (Miralax) 17 gm HSPRN PRN ORAL Constipation 02/04/19 21:30 03/04/19 21:29 Zolpidem Tartrate (Ambien) 5 mg HSPRN PRN ORAL Insomnia 02/04/19 21:30 02/09/19 21:29 Assessment/Plan Assessment/Plan (1) Migraine Headache (2) Seizure Disorder seen dictated Flavio Hewitt Feb 04, 2019 09:05
--- NOTE | 2019-02-04 11:07 | GI Initial Consult Note ---
History of Present Illness General Date patient seen: Feb 04, 2019 Time patient seen: 11:02 Reason for Hospitalization: Seizure Referring physician: SANDY NUNES Reason for Consultation: Persistent nausea and vomiting times 1 week Present Illness HPI The patient presents with uncontrolled seizures since last night. She's also complaining about headache. She's been taking her Fioricet for the headache. She also has Ativan to use for the seizures. She's been vomiting uncontrollably also. She has several types of seizures. These have been tonic- clonic seizures leading to altered mentation afterwards. Apparently she's not been incontinent with these. Her denies any head trauma although the patient is complaining about headache at this time. The last seizure she had was 2 weeks ago. She was not evaluated at that time. She's not on any anticonvulsant aside from when necessary Ativan. 3 years ago the patient was diagnosed with multiple sclerosis. Was felt that this had a relation with her seizure activity. She's not being followed by a neurologist at this time. She was last seen by a physician a month ago at urgent care. She is not being treated for the multiple sclerosis. She has no primary physician. H/O migraines. She has been taking Fioricet. Admitted 2016 with these discharge diagnoses: 1. Multiple sclerosis exacerbation. 2. Intractable pain. 3. History of seizure disorder Patient seen 05/2018 with this assessment: This patient had narcotic seeking behavior. The patient refused all nonnarcotics even as a first attempt at controlling the patient's pain. I offered acetaminophen Phenergan and Toradol. The patient did take the [place] that I gave her. Basic laboratory workup to include a CBC, CMP did show a slight leukocytosis. Patient was also quite tachycardic during her ED course. I was concerned about pyelonephritis given the back and flank pain. I also wanted to obtain a CT of the patient's head. She did report a history of MS. Unfortunately, this patient refused to give a urinalysis. She also refused undergo a CT of her head or of her abdomen and pelvis. I really could not completely this patient's workup. She did have tachycardia. [facility] and she receives large quantities of oxycodone from her primary care physician and other controlled substances to include benzodiazepines. I had planned on fully working this patient up for an infection and for her tachycardia. However, the patient declined these tests. The patient then decided to leave AGAINST MEDICAL ADVICE. I cautioned the patient and her boyfriend that she should stay and undergo further workup for the tests that I had ordered. However, I suspect this patient is displeased with the lack of narcotic pain medication that she received. The patient left AGAINST MEDICAL ADVICE. GI consulted for severe nausea and vomiting times 1 week. Patient was seen, awake alert and oriented x4 has complaint of severe nausea. Stated she had an episode of emesis this morning. Patient stated she was very fatigued and wished to be left alone. No other history was obtained at this time. All information obtained from medical record. Labs reviewed; white count of 4.2 and hemoglobin 8.1. No transaminitis noted. Urine toxicity positive for barbiturates. Unknown history of endoscopic colonoscopy. Home Meds Reported Medications Bupropion Hcl* (WELLBUTRIN XL*) 150 Mg Tab.er.24h, 150 MG ORAL DAILY for 30 Days , TAB 0 Refills extended release 10/14/17 Lorazepam* (ATIVAN*) 1 Mg Tablet, 1 MG ORAL PRN PRN for For Anxiety, TAB 10/14/17 Zolpidem Tartrate* (AMBIEN*) 10 Mg Tablet, 10 MG ORAL BEDTIME PRN for Insomnia, TAB 0 Refills 10/14/17 Acetamin/Butalbital/Caffeine* (FIORICET*) 1 Ea Tab, 1 TAB ORAL Q4H for headache , TAB 10/13/17 Divalproex Sodium (DEPAKOTE) 125 Mg Tablet.dr, 250 MG PO BID, TAB 10/13/17 Med list reviewed/reconciled: Yes Allergies: Coded Allergies: TOMATO (Verified Allergy, Severe, Anaphylaxis, 02/03/19) Patient History History Provided By: Patient, Medical Record PMH Narrative Limited by: medical condition Past Medical History: see triage record, old chart reviewed Past Surgical History: other - Aneurysm post coil placement Social History: Denies: smoking Social History Narrative Reviewed Nursing Documentation: PMH: Agreed; PSxH: Agreed Nursing Documentation-PMH Past Medical History: No History, Except For Hx Seizures: Yes Social History: Denies: smoking, alcohol use, drug use, other Review of Systems All Other Systems: negative except mentioned in HPI Physical Exam Vital Signs Date Time Temp Pulse Resp B/P (MAP) Pulse Ox O2 Delivery O2 Flow Rate FiO2 02/02/19 19:14 98.1 114 20 143/105 99 Room Air Sp02 EP Interpretation: reviewed, normal Labs Laboratory Tests Test 02/04/19 06:09 White Blood Count 4.7 K/UL (4.8-10.8) L Red Blood Count 4.37 M/UL (4.20-5.40) Hemoglobin 8.1 G/DL (12.0-16.0) L Hematocrit 27.8 % (37.0-47.0) L Mean Corpuscular Volume 63 FL (80-99) L Mean Corpuscular Hemoglobin 18.5 PG (27.0-31.0) L Mean Corpuscular Hemoglobin Concent 29.2 G/DL (32.0-36.0) L Red Cell Distribution Width 14.3 % (11.6-14.8) Platelet Count 362 K/UL (150-450) Mean Platelet Volume 5.7 FL (6.5-10.1) L Neutrophils (%) (Auto) 45.8 % (45.0-75.0) Lymphocytes (%) (Auto) 43.3 % (20.0-45.0) Monocytes (%) (Auto) 8.5 % (1.0-10.0) Eosinophils (%) (Auto) 0.8 % (0.0-3.0) Basophils (%) (Auto) 1.6 % (0.0-2.0) Neutrophils % (Manual) Pending Lymphocytes % (Manual) Pending Platelet Estimate Pending Platelet Morphology Pending Erythrocyte Sedimentation Rate 14 MM/HR (0-20) Reticulocyte Count Pending Prothrombin Time 10.5 SEC (9.30-11.50) Prothromb Time International Ratio 1.0 (0.9-1.1) Activated Partial Thromboplast Time 25 SEC (23-33) Sodium Level 137 MMOL/L (136-145) Potassium Level 3.3 MMOL/L (3.5-5.1) L Chloride Level 100 MMOL/L (98-107) Carbon Dioxide Level 25 MMOL/L (21-32) Anion Gap 12 mmol/L (5-15) Blood Urea Nitrogen 7 mg/dL (7-18) Creatinine 0.7 MG/DL (0.55-1.30) Estimat Glomerular Filtration Rate > 60 mL/min (>60) Glucose Level 82 MG/DL (74-106) Calcium Level 9.0 MG/DL (8.5-10.1) Phosphorus Level 3.1 MG/DL (2.5-4.9) Magnesium Level 1.9 MG/DL (1.8-2.4) Iron Level 150 ug/dL (50-175) Total Iron Binding Capacity 429 ug/dL (250-450) Percent Iron Saturation 35 % (15-50) Unsaturated Iron Binding 279 ug/dL (112-346) Lactate Dehydrogenase 163 U/L (81-234) Carcinoembryonic Antigen Pending Vitamin B12 Level 569 PG/ML (193-986) Folate 6.0 NG/ML (8.6-58.9) L General Appearance: well appearing, no apparent distress, alert Head: normocephalic EENT: PERRL/EOMI, normal ENT inspection Neck: supple Respiratory: normal breath sounds, no respiratory distress Cardiovascular: normal rate Gastrointestinal: normal inspection, non tender, soft, normal bowel sounds, non -distended Rectal: deferred Genitourinary: no CVA tenderness Musculoskeletal: normal inspection, back normal Neurologic: normal inspection, alert, oriented x3, responsive Psychiatric: normal inspection, judgement/insight normal, memory normal Skin: normal inspection, normal color, no rash, warm/dry, palpation normal, well hydrated Lymphatic: normal inspection, no adenopathy Current Medications Current Medications Medications (Trade) Dose Ordered Sig/Ramon Route PRN Reason Start Time Stop Time Status Last Admin Dose Admin Acetaminophen (Tylenol) 650 mg Q4H PRN ORAL T>100.5 02/04/19 09:30 03/04/19 21:29 Acetaminophen/ Butalbital/ Caffeine (Fioricet) 1 tab Q6H PRN ORAL Mild Pain (Pain Scale 1-3)/HSIEH 02/04/19 08:15 03/05/19 08:14 02/04/19 08:39 Al Hydroxide/Mg Hydroxide (Mylanta II) 30 ml Q6H PRN ORAL dyspepsia 02/04/19 08:00 03/04/19 07:59 Bupropion HCl (Wellbutrin XL) 150 mg DAILY ORAL 02/04/19 09:00 03/05/19 08:59 02/04/19 08:38 Dextrose (Dextrose 50%) 25 ml Q30M PRN IV Hypoglycemia 02/04/19 07:15 03/04/19 21:33 Dextrose (Dextrose 50%) 50 ml Q30M PRN IV hypoglycemia 02/04/19 07:15 03/04/19 21:44 Divalproex Sodium (Depakote) 250 mg Q12HR ORAL 02/04/19 09:00 03/06/19 08:59 02/04/19 08:38 Folic Acid (Folate) 1 mg DAILY ORAL 02/04/19 09:45 03/06/19 09:44 Gabapentin (Neurontin) 300 mg THREE TIMES A DAY ORAL 02/04/19 09:00 03/06/19 08:59 Heparin Sodium (Porcine) (Heparin 5000 units/ml) 5,000 units EVERY 12 HOURS SUBQ 02/04/19 09:00 03/05/19 08:59 02/04/19 08:40 Iron Sucrose 100 mg/Sodium Chloride 60 ml @ 240 mls/hr BEDTIME IV 02/04/19 21:00 02/07/19 21:14 Lorazepam (Ativan 2mg/ml 1ml) 2 mg Q1H PRN IV seizures 02/04/19 07:30 02/09/19 21:29 Morphine Sulfate (Morphine Sulfate) 1 mg Q4H PRN IVP Severe Pain (Pain Scale 7-10) 02/04/19 07:30 02/09/19 07:29 Ondansetron HCl (Zofran) 4 mg Q6H PRN IVP Nausea & Vomiting 02/04/19 08:00 03/04/19 07:59 Oxycodone/ Acetaminophen (Percocet 10/325) 1 tab Q4H PRN ORAL Moderate Pain (Pain Scale 4-6) 02/04/19 09:00 02/11/19 08:59 Polyethylene Glycol (Miralax) 17 gm HSPRN PRN ORAL Constipation 02/04/19 21:30 03/04/19 21:29 Zolpidem Tartrate (Ambien) 5 mg HSPRN PRN ORAL Insomnia 02/04/19 21:30 02/09/19 21:29 GI: Plan Problems: (1) Anemia (2) Headache (3) Uncontrolled seizures (4) Severe anemia (5) Weak (6) Paresthesia (7) Seizure Plan Anemia workup reviewed Noted history of ?multiple sclerosis Will consider endoscopy if patient has persistent nausea and vomiting Symptomatic treatment at this time Okay to advance to regular diet Zofran as needed, Reglan for persistent nausea Monitor H&H, PRN transfusions PPI Electrolyte correction Follow labs Discussed with Dr. Galan. Thank you for this patient referral, we will follow. The patient was seen and examined at bedside and all new and available data was reviewed in the patients chart. I agree with the above findings, impression and plan. (Patient seen earlier today. Signature stamp does not reflect patient encounter time.). - MD [facility] Feb 04, 2019 11:07
--- NOTE | 2019-02-04 11:08 | NUR ---
CASE MANAGEMENT:REVIEW 02/04/19 SI: SEIZURE. HEADACHE. MS. ANEMIA 97.2 83 20 126/76 99% ON RA H/H-8.1/27.8 K-3.3 IS: IV VENOFER QHS FOLATE PO QD WELLBUTRIN PO QD DEPAKOTE PO Q12 HEPARIN SQ Q12 : MED/SURG STATUS 3 EAST DC; FROM HOME
[2019-02-04] MEDS ORDERED: DEPAKOTE250 MG ORAL (11:30)
--- NOTE | 2019-02-04 11:33 | Pulmonology Progress Note ---
Assessment/Plan Problems: (1) Uncontrolled seizures (2) Multiple sclerosis (3) Seizure disorder (4) Severe anemia Assessment/Plan seizures controlled, doing better dc home with f/u with primary prescription for depakote given Subjective ROS Limited/Unobtainable: No Allergies: Coded Allergies: TOMATO (Verified Allergy, Severe, Anaphylaxis, 02/03/19) Objective Last 24 Hour Vital Signs Date Time Temp Pulse Resp B/P (MAP) Pulse Ox O2 Delivery O2 Flow Rate FiO2 02/04/19 09:36 97.9 02/04/19 09:36 97.9 02/04/19 06:50 97.2 83 20 126/76 (93) 99 02/04/19 04:00 97.9 98 20 126/79 (95) 99 02/04/19 04:00 77 02/04/19 00:00 77 02/04/19 00:00 99.0 76 18 136/81 (99) 96 02/03/19 21:00 Room Air 02/03/19 20:00 97.9 82 20 128/76 (93) 100 02/03/19 20:00 96 02/03/19 17:36 98.2 02/03/19 16:00 93 02/03/19 16:00 98.2 73 18 126/76 (93) 97 02/03/19 12:00 98.8 80 16 119/74 (89) 97 02/03/19 12:00 77 Intake and Output 02/03/19 02/04/19 19:00 07:00 Intake Total 360 ml 600 ml Output Total 600 ml Balance -240 ml 600 ml Intake Oral 360 ml 600 ml Output Urine Total 600 ml # Voids 3 General Appearance: WD/WN Respiratory/Chest: lungs clear, normal breath sounds Breasts: no masses Cardiovascular: normal rate Genitourinary: normal external genitalia Skin: no rash Laboratory Tests 02/04/19 06:09: White Blood Count 4.7L, Red Blood Count 4.37, Hemoglobin 8.1L, Hematocrit 27.8L , Mean Corpuscular Volume 63L, Mean Corpuscular Hemoglobin 18.5L, Mean Corpuscular Hemoglobin Concent 29.2L, Red Cell Distribution Width 14.3, Platelet Count 362, Mean Platelet Volume 5.7L, Neutrophils (%) (Auto) 45.8, Lymphocytes (%) (Auto) 43.3, Monocytes (%) (Auto) 8.5, Eosinophils (%) (Auto) 0.8, Basophils (%) (Auto) 1.6, Neutrophils % (Manual) [Pending], Lymphocytes % ( Manual) [Pending], Platelet Estimate [Pending], Platelet Morphology [Pending], Erythrocyte Sedimentation Rate 14, Reticulocyte Count [Pending], Prothrombin Time 10.5, Prothromb Time International Ratio 1.0, Activated Partial Thromboplast Time 25, Sodium Level 137, Potassium Level 3.3L, Chloride Level 100 , Carbon Dioxide Level 25, Anion Gap 12, Blood Urea Nitrogen 7, Creatinine 0.7, Estimat Glomerular Filtration Rate > 60, Glucose Level 82, Calcium Level 9.0, Phosphorus Level 3.1, Magnesium Level 1.9, Iron Level 150, Total Iron Binding Capacity 429, Percent Iron Saturation 35, Unsaturated Iron Binding 279, Lactate Dehydrogenase 163, Carcinoembryonic Antigen [Pending], Vitamin B12 Level 569, Folate 6.0L Current Medications Medications (Trade) Dose Ordered Sig/Ramon Route PRN Reason Start Time Stop Time Status Last Admin Dose Admin Acetaminophen (Tylenol) 650 mg Q4H PRN ORAL T>100.5 02/04/19 09:30 03/04/19 21:29 Acetaminophen/ Butalbital/ Caffeine (Fioricet) 1 tab Q6H PRN ORAL Mild Pain (Pain Scale 1-3)/HSIEH 02/04/19 08:15 03/05/19 08:14 02/04/19 08:39 Al Hydroxide/Mg Hydroxide (Mylanta II) 30 ml Q6H PRN ORAL dyspepsia 02/04/19 08:00 03/04/19 07:59 Bupropion HCl (Wellbutrin XL) 150 mg DAILY ORAL 02/04/19 09:00 03/05/19 08:59 02/04/19 08:38 Dextrose (Dextrose 50%) 25 ml Q30M PRN IV Hypoglycemia 02/04/19 07:15 03/04/19 21:33 Dextrose (Dextrose 50%) 50 ml Q30M PRN IV hypoglycemia 02/04/19 07:15 03/04/19 21:44 Divalproex Sodium (Depakote) 250 mg Q12HR ORAL 02/04/19 09:00 03/06/19 08:59 02/04/19 08:38 Folic Acid (Folate) 1 mg DAILY ORAL 02/04/19 09:45 03/06/19 09:44 Gabapentin (Neurontin) 300 mg THREE TIMES A DAY ORAL 02/04/19 09:00 03/06/19 08:59 Heparin Sodium (Porcine) (Heparin 5000 units/ml) 5,000 units EVERY 12 HOURS SUBQ 02/04/19 09:00 03/05/19 08:59 02/04/19 08:40 Iron Sucrose 100 mg/Sodium Chloride 60 ml @ 240 mls/hr BEDTIME IV 02/04/19 21:00 02/07/19 21:14 Lorazepam (Ativan 2mg/ml 1ml) 2 mg Q1H PRN IV seizures 02/04/19 07:30 02/09/19 21:29 Morphine Sulfate (Morphine Sulfate) 1 mg Q4H PRN IVP Severe Pain (Pain Scale 7-10) 02/04/19 07:30 02/09/19 07:29 Ondansetron HCl (Zofran) 4 mg Q6H PRN IVP Nausea & Vomiting 02/04/19 08:00 03/04/19 07:59 Oxycodone/ Acetaminophen (Percocet 10/325) 1 tab Q4H PRN ORAL Moderate Pain (Pain Scale 4-6) 02/04/19 09:00 02/11/19 08:59 Polyethylene Glycol (Miralax) 17 gm HSPRN PRN ORAL Constipation 02/04/19 21:30 03/04/19 21:29 Zolpidem Tartrate (Ambien) 5 mg HSPRN PRN ORAL Insomnia 02/04/19 21:30 02/09/19 21:29 Angel Luis Newman MD Feb 04, 2019 11:33
[2019-02-04 12:00] VITALS: BP 127/73
--- NOTE | 2019-02-04 14:29 | General Progress Note ---
Assessment/Plan Problem List: (1) Seizure disorder ICD Codes: G40.909 - Epilepsy, unspecified, not intractable, without status epilepticus SNOMED: 729348147 (2) Headache ICD Codes: R51 - Headache SNOMED: 81969861 Qualifiers: Qualified Codes: R51 - Headache (3) Anemia ICD Codes: D64.9 - Anemia, unspecified SNOMED: 610825250 (4) Weak ICD Codes: R53.1 - Weakness SNOMED: 22895536 (5) Multiple sclerosis ICD Codes: G35 - Multiple sclerosis SNOMED: 65417742 Status: stable, progressing Assessment/Plan pt diet seizure control gi heme f/u cbc bmp am Subjective Constitutional: Reports: weakness Allergies: Coded Allergies: TOMATO (Verified Allergy, Severe, Anaphylaxis, 02/03/19) All Systems: reviewed and negative except above Subjective sl nausea Objective Last 24 Hour Vital Signs Date Time Temp Pulse Resp B/P (MAP) Pulse Ox O2 Delivery O2 Flow Rate FiO2 02/04/19 09:36 97.9 02/04/19 09:36 97.9 02/04/19 06:50 97.2 83 20 126/76 (93) 99 02/04/19 04:00 97.9 98 20 126/79 (95) 99 02/04/19 04:00 77 02/04/19 00:00 77 02/04/19 00:00 99.0 76 18 136/81 (99) 96 02/03/19 21:00 Room Air 02/03/19 20:00 97.9 82 20 128/76 (93) 100 02/03/19 20:00 96 02/03/19 17:36 98.2 02/03/19 16:00 93 02/03/19 16:00 98.2 73 18 126/76 (93) 97 Intake and Output 02/03/19 02/04/19 19:00 07:00 Intake Total 360 ml 600 ml Output Total 600 ml Balance -240 ml 600 ml Intake Oral 360 ml 600 ml Output Urine Total 600 ml # Voids 3 Laboratory Tests 02/04/19 06:09: White Blood Count 4.7L, Red Blood Count 4.37, Hemoglobin 8.1L, Hematocrit 27.8L , Mean Corpuscular Volume 63L, Mean Corpuscular Hemoglobin 18.5L, Mean Corpuscular Hemoglobin Concent 29.2L, Red Cell Distribution Width 14.3, Platelet Count 362, Mean Platelet Volume 5.7L, Neutrophils (%) (Auto) 45.8, Lymphocytes (%) (Auto) 43.3, Monocytes (%) (Auto) 8.5, Eosinophils (%) (Auto) 0.8, Basophils (%) (Auto) 1.6, Differential Total Cells Counted 100, Neutrophils % (Manual) 47, Lymphocytes % (Manual) 41, Monocytes % (Manual) 9, Eosinophils % (Manual) 2, Basophils % (Manual) 1, Band Neutrophils 0, Platelet Estimate Adequate, Platelet Morphology Normal, Hypochromasia 2+, Anisocytosis 1+ , Microcytosis 1+, Erythrocyte Sedimentation Rate 14, Reticulocyte Count 0.7, Prothrombin Time 10.5, Prothromb Time International Ratio 1.0, Activated Partial Thromboplast Time 25, Sodium Level 137, Potassium Level 3.3L, Chloride Level 100, Carbon Dioxide Level 25, Anion Gap 12, Blood Urea Nitrogen 7, Creatinine 0.7, Estimat Glomerular Filtration Rate > 60, Glucose Level 82, Calcium Level 9.0, Phosphorus Level 3.1, Magnesium Level 1.9, Iron Level 150, Total Iron Binding Capacity 429, Percent Iron Saturation 35, Unsaturated Iron Binding 279, Lactate Dehydrogenase 163, Carcinoembryonic Antigen [Pending], Vitamin B12 Level 569, Folate 6.0L Height (Feet): 5 Height (Inches): 4.00 Weight (Pounds): 130 General Appearance: lethargic EENT: normal ENT inspection Neck: normal alignment Cardiovascular: normal peripheral pulses, normal rate, regular rhythm Respiratory/Chest: chest wall non-tender, lungs clear, normal breath sounds Abdomen: normal bowel sounds, non tender, soft Extremities: normal inspection Edema: no edema noted Arm (L), no edema noted Arm (R), no edema noted Leg (L), no edema noted Leg (R), no edema noted Pedal (L), no edema noted Pedal (R), no edema noted Generalized Neurologic: responsive, motor weakness Skin: normal pigmentation, warm/dry Douglas Nova DO Feb 04, 2019 14:29
[2019-02-04 15:51] VITALS: BP 135/99
--- NOTE | 2019-02-04 16:27 | NUR ---
NURSE NOTES: patient discharged from the unit stable condition with out no distress no seizure noted during my shift, discharge instruction, belongings and prescription given to patient. Patient stated she want to refill her prescribed Depakote at her own pharmacy because she has a 55$ co-pay at [facility] prescription given. transported from the hospital to the [facility] car by wheelchair. Seizure precaution instruction given patient verbalized understanding.
--- NOTE | 2019-02-04 16:37 | NUR ---
P.T NOTE: LATE ENTRY 0935 P.T evaluation completed. Based on P.T evaluation, patient already at baseline function : Independent for all basic functional mobilities and gait/locomotion. Current functional status does not warrant skilled P.T service at this time. [facility] P.T services. Thank you for this referral.
--- NOTE | 2019-02-04 17:15 | Consultation ---
DATE OF CONSULTATION: 02/04/2019 PAIN MANAGEMENT CONSULTATION: CONSULTING PHYSICIAN: Jose Fried M.D. REFERRING PHYSICIAN: Douglas Nova D.O. PHYSICIAN ALARM INVESTIGATOR: Jonathan Ly CHIEF COMPLAINT: Migraine headache. HISTORY OF PRESENT ILLNESS: This is a 33-year-old female who is being seen on the Med/Surg floor of [facility] for initial pain management consultation. The patient has been admitted under Dr. Nova with complaints of seizure disorder and headache, which she says has been due to migraine headache. In the past, she was taking Fioricet as an outpatient and was started on morphine 1 mg IV every 4 hours as needed for severe pain and Percocet 5/325 mg tablet every 4 hours as needed for moderate pain with minimal pain relief. The patient also states she has multiple sclerosis. No documentation has been noted at this time in terms of solid diagnosis of this issue and recommended a neurological consultation as per the sports activities foul judge. We were consulted so the patient would have adequate pain control while here in the hospital. PAST MEDICAL HISTORY: Migraine headache, seizure disorder. SOCIAL HISTORY: At this time denies smoking tobacco, drinking alcohol, or drug abuse. ALLERGIES: No known drug allergies. MEDICATIONS: Fioricet, Wellbutrin, Depakote, Ativan, Ambien. REVIEW OF SYSTEMS: Denies rash, fever, chills, sweating, dizziness, drowsiness, blurred vision, change in hearing or weight. No shortness of breath or chest pain. No nausea, vomiting, diarrhea, blood in stool or urine. No bowel or bladder incontinence. No dysuria. She is complaining of headache. PHYSICAL EXAMINATION: GENERAL: Alert, awake, oriented. VITAL SIGNS: Blood pressure 123/76, heart rate is 83, oxygen saturation 98%, respirations 20, temperature is 97.2 degrees Fahrenheit. HEENT: PERRLA. NECK: Range of motion is full in all directions. No tenderness to paracervical muscles. No adenopathy. LUNGS: Clear bilaterally. HEART: Regular. ABDOMEN: Soft, nontender. BACK: Range of motion is full in flexion and extension. EXTREMITIES: Upper and lower extremity range of motion is decreased due to the patient's condition. No cyanosis. No clubbing. Sensory is decreased. Reflexes are not obtainable. No adenopathy. ASSESSMENT AND PLAN: This is a 33-year-old female with migraine headaches, seizure disorder. The patient will be continued on morphine. We will increase the Percocet 10/325 one tablet every 4 hours as needed for moderate pain and start Neurontin 300 mg tablet 3 times a day. The patient was discussed with Dr. Fried and he concurred. We will follow the patient. Thank you very much for the courtesy of this consultation. Jose Fried M.D. DELANEY Ly DR: REINALDO JOB#: [id number] CC:
[2019-02-04] MEDS ORDERED: Iron Sucrose 100 MG in NS 55 ML IV SCH ×4 (21:00)
[2019-02-04] MEDS ORDERED: Zolpidem 5mg tab ORAL PRN (21:30)
[2019-02-04] MEDS ORDERED: Miralax 17gm pkt ORAL PRN (21:30)
--- NOTE | 2019-02-06 13:26 | Discharge Summary ---
Discharge Summary Discharge Summary _ DATE OF ADMISSION: 02/02/2019 DATE OF DISCHARGE: 02/04/2019 DISCHARGED BY: Dr Nova REASON FOR ADMISSION: 33 years old female with past medical history of multiple sclerosis, seizure disorder, presented to emergency department after uncontrolled seizure since last night. Patient also was complaining about pain migraine headaches. Patient was taking Fioricet and used Ativan for seizure. She reported vomiting . She apparently had several types of seizure, including tonic-clonic seizure, leading to altered mentation afterwards. Patient was not incontinent. Patient's denied any head trauma. Last seizure was 2 weeks ago. Patient was not on any anticonvulsant therapy, aside from Ativan , which she is using as needed. Patient was diagnosed with multiple sclerosis 3 years ago. Patient has not followed up with neurologist. Patient not on any treatment for multiple sclerosis. Apparently from previous assessment patient exhibited narcotic seeking behavior and refused all nonnarcotic, even at the first attempt to control the patient' s pain. Upon evaluation in emergency department patient was tachycardic with heart rate 114, blood pressure was elevated 143/105. No leukocytosis, hemoglobin 8.8, hematocrit 30. Potassium 3.3. Stable renal parameters and other electrolytes. Stable LFT. Albumin 4.2. Serum alcohol negative, serum salicylate and Tylenol negative. Urine test negative. Urine toxicology screen positive for barbiturates (patient took Fioricet at home ). EKG revealed sinus tachycardia, no acute ischemic changes. Chest x-ray revealed no acute cardiopulmonary pathology. Patient was admitted for uncontrolled seizure. CONSULTANTS: pulmonary Dr. Newman GI specialist Dr. Galan program developer Dr.De Oneal pain specialist Dr. Fried HOSPITAL COURSE: Patient was admitted. Seizure precautions were maintained. Patient was observed for any paroxysmal events. No seizure activity while in the hospital. Patient was started on Depakote. Prescription provided for home use Ativan was on standby as needed for breakthrough seizure. No evidence of further seizure activity while in the hospital. DVT prophylaxis provided. Supplemental oxygen provided as needed to keep pulse oximetry above 92%. Symptomatic treatment provided. Pain management was addressed as per pain specialist recommendation. Detention Attendant followed. Renal parameters and electrolytes were closely monitored. Electrolytes corrected as needed. Nephrotoxins were avoided. Anemia workup was consistent with anemia of iron deficiency, low MCV. Hemoglobin and hematocrit were closely monitored with goal to keep hemoglobin above 7. GI specialist followed. GI specialist recommended consider endoscopy, if patient had persistent nausea and vomiting. Symptomatic treatment at this time provided. Diet was slowly introduced and advanced as tolerated. Reglan was provided for persistent nausea and Zofran was provided on as needed basis. Patient started on PPI. Patient was able to tolerate diet. IV fluids discontinued. Patient clinically stabilized and was ready for discharge home. Patient was recommended to establish a primary care provider and routinely follow-up with him. FINAL DIAGNOSES: Uncontrolled seizures Migraine headaches Severe anemia Multiple sclerosis DISCHARGE MEDICATIONS: See Medication Reconciliation list. DISCHARGE INSTRUCTIONS: Patient was discharged home. Recommended to find a primary care provider and follow-up with him/her routinely. [facility] was recommended to establish primary care. I have been assigned to dictate discharge summary for this account. I was not involved in the patient's management. Joy Fritz NP Feb 06, 2019 13:26
== END 2019-02-04 16:20 | disposition home or self-care (01) | DRG 101 ==
LOC: EMR 19:30 → 2E 21:06 → EDBEDREQ 21:33 → 2E 22:58 → 3E 02-04 06:59
DX: G40.909 Epilepsy, unspecified, not intractable, without status epilepticus (principal); G43.909 Migraine, unspecified, not intractable, without status migrainosus; D64.9 Anemia, unspecified; G35 Multiple sclerosis; E87.6 Hypokalemia; R00.0 Tachycardia, unspecified
CPT/HCPCS: 36415; 70450; 71045; 80048; 80053; 80307; 80329; 81003; 81025; 82378; 82550; 82607; 82728; 82746; 82962; 83540; 83550; 83615; 83735; 84100; 85007; 85025; 85044; 85060; 85610; 85651; 85730; 93005; 96361; 96374; 96375; 96376; 99285; J2405; J8499